=== PATIENT | female | born 2000 | race Asian ===

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

== ENCOUNTER 2018-05-12 15:18 | Emergency (ER) | payer MEDICAID ==
--- NOTE | 2018-05-12 17:40 | ED Physician Documentation ---
PD HPI NVD - Stated complaint Stated Complaint: F/V/D/HEADACHE - Chief complaint Chief Complaint: Abd Pain - History obtained from History obtained from: Patient - History of Present Illness Timing - onset: How many days ago (3) Timing - duration: Days (3) Timing - details: Abrupt onset, Still present (had onset of vomiting and diarrhea 3 days ago, worse the first 1-2 days and then diarrhea lessening. Developed headache yesterday, right sided and with light sensitivity. No history of migraines. No fever nor stiff neck.) Associated symptoms: Loss of appetite. No: Fever, Abdominal pain, Hematemesis, Hematochezia, Near syncope / syncope, Dysuria Contributing factors: No: Sick contact, Bad food, Travel, Alcohol use, Diabetes Improved by: No: Vomiting Worsened by: Eating Similar symptoms before: Has not had sx before Recently seen: Not recently seen Review of Systems Constitutional: reports: Myalgias. denies: Fever Eyes: reports: Photophobia. denies: Loss of vision Nose: denies: Rhinorrhea / runny nose, Congestion Throat: denies: Sore throat Respiratory: denies: Cough GI: reports: Nausea, Vomiting, Diarrhea. denies: Abdominal Pain Neurologic: reports: Headache. denies: Focal weakness, Numbness, Confused, Altered mental status, Head injury PD PAST MEDICAL HISTORY - Past Medical History Cardiovascular: None Respiratory: Pneumonia Neuro: None Endocrine/Autoimmune: None Psych: None Musculoskeletal: None - Past Surgical History Past Surgical History: No - Present Medications Home Medications: Ambulatory Orders Medication Instructions Recorded Confirmed Diphenoxylate/Atropine [Lomotil] 1 each PO QID PRN #15 tablet 05/12/18 Etonogestrel [Nexplanon] 05/12/18 Ondansetron Odt [Zofran] 4 mg TL Q6H PRN #15 tablet 05/12/18 - Allergies Allergies/Adverse Reactions: Allergies Allergy/AdvReac Type Severity Reaction Status Date / Time Penicillins Allergy Severe Hives Verified 12/18/17 22:03 - Social History Does the pt smoke?: No Smoking Status: Never smoker Does the pt drink ETOH?: No Does the pt have substance abuse?: No - Immunizations Immunizations are current?: Yes - POLST Patient has POLST: No PD ED PE NORMAL - Vitals Vital signs reviewed: Yes - General General: Alert and oriented X 3, No acute distress, Well developed/nourished - HEENT HEENT: Ears normal, Pharynx benign. No: Moist mucous membranes - Neck Neck: Supple, no meningeal sign, No bony TTP, No adenopathy - Cardiac Cardiac: RRR, No murmur - Respiratory Respiratory: Clear bilaterally - Abdomen Abdomen: Soft, Non tender - Female Female : Deferred - Rectal Rectal: Deferred - Back Back: No CVA TTP - Derm Derm: Normal color, Warm and dry - Extremities Extremities: No deformity, No tenderness to palpate, Normal ROM s pain, No edema , No calf tenderness / cord - Neuro Neuro: Alert and oriented X 3, No motor deficit, Normal speech Results - Vitals Vitals: Oxygen O2 Source Room air - Labs Labs: Laboratory Tests 05/12/18 05/12/18 05/12/18 17:15 17:15 17:30 WBC 9.2 RBC 4.80 Hgb 14.1 Hct 42.7 MCV 88.9 MCH 29.3 MCHC 33.0 RDW 13.5 Plt Count 403 MPV 7.9 Neut # (Auto) 6.1 Lymph # (Auto) 2.7 [place] # (Auto) 0.4 Eos # (Auto) 0.0 Baso # (Auto) 0.1 Absolute Nucleated RBC 0.00 Nucleated RBC % 0.1 Sodium Potassium Chloride Carbon Dioxide Anion Gap BUN Creatinine Estimated GFR (MDRD) Glucose Calcium Magnesium Total Bilirubin AST ALT Alkaline Phosphatase Total Protein Albumin Globulin Albumin/Globulin Ratio Lipase Urine Color YELLOW Urine Clarity CLEAR Urine pH 6.0 Ur Specific [place] 1.020 1.020 Urine Protein NEGATIVE Urine Glucose (UA) NEGATIVE Urine Ketones >=80 H Urine Occult Blood LARGE H Urine Nitrite NEGATIVE Urine Bilirubin NEGATIVE Urine Urobilinogen 0.2 (NORMAL) Ur Leukocyte Esterase NEGATIVE Urine RBC 6-10 H Urine WBC 0-3 Ur Squamous Epith Cells FEW Squamous Amorphous Sediment Moderate Urine Bacteria Few Urine Mucus Moderate Strands Ur Microscopic Review INDICATED Urine Culture Comments NOT INDICATED Urine HCG, Qual NEGATIVE 05/12/18 17:30 WBC RBC Hgb Hct MCV MCH MCHC RDW Plt Count MPV Neut # (Auto) Lymph # (Auto) [place] # (Auto) Eos # (Auto) Baso # (Auto) Absolute Nucleated RBC Nucleated RBC % Sodium 135 Potassium 3.5 Chloride 102 Carbon Dioxide 21 Anion Gap 12.0 BUN 8 Creatinine 0.7 Estimated GFR (MDRD) 107 Glucose 101 H Calcium 9.4 Magnesium 2.0 Total Bilirubin 1.3 H AST 20 ALT 19 Alkaline Phosphatase 54 Total Protein 8.8 H Albumin 4.4 Globulin 4.4 H Albumin/Globulin Ratio 1.0 Lipase 27 Urine Color Urine Clarity Urine pH Ur Specific [place] Urine Protein Urine Glucose (UA) Urine Ketones Urine Occult Blood Urine Nitrite Urine Bilirubin Urine Urobilinogen Ur Leukocyte Esterase Urine RBC Urine WBC Ur Squamous Epith Cells Amorphous Sediment Urine Bacteria Urine Mucus Ur Microscopic Review Urine Culture Comments Urine HCG, Qual PD MEDICAL DECISION MAKING - ED course Complexity details: re-evaluated patient (feeling much better with fluids and also meds tailored for migraine. ), considered differential (sounds migraine like with GE symptoms, perhaps vascular/migraine triggered by dehydration. No history of migraines. Does not seem meningitic. ), d/w patient - Sepsis Event Vital Signs: Oxygen O2 Source Room air Departure - Departure Disposition: 01 Home, Self Care Clinical Impression: Nausea vomiting and diarrhea, Dehydration Headache Qualifiers: Headache type: unspecified Headache chronicity pattern: acute headache Intractability: not intractable Qualified Code(s): R51 - Headache Condition: Stable Record reviewed to determine appropriate education?: Yes Instructions: ED Diet Vomiting Diarrhea Follow-Up: Marta Frias ARNP [Primary Care Provider] - Prescriptions: Diphenoxylate/Atropine [Lomotil] 1 each PO QID PRN #15 tablet PRN Reason: Diarrhea Ondansetron Odt [Zofran] 4 mg TL Q6H PRN #15 tablet PRN Reason: Nausea / Vomiting Comments: Small frequent fluids. [place] food such as rice and pastas and breads initially and progress diet as able over the next day. Presumably the vomiting and diarrhea are viral illness that should improve in the next day or 2. Tylenol or ibuprofen if needed for headache. Add the hydrocodone if needed. Ondansetron if needed for nausea. Lomotil for diarrhea. Recheck if not improved over the next day or 2. The headache you had sounds migraine-like and vascular headache such as that can be precipitated by dehydration and may be an isolated event. Follow-up with your primary care if you have repeated episodes frequently. Discharge Date/Time: 05/12/18 20:02
[2018-05-12] MEDS ORDERED: SODIUM CHLORIDE 0.9% 1,000 ML IV ONE ×2 (17:45)
[2018-05-12] MEDS ORDERED: KETOROLAC 60 MG/2 ML VIAL IVP STA (17:45)
[2018-05-12] MEDS ORDERED: diphenhydrAMINE INJ 50 MG/ML VIAL IVP STA (17:45)
[2018-05-12] MEDS ORDERED: PROCHLORPERAZINE 10 MG/2 ML VIAL IVP STA (17:45)
[2018-05-12] MEDS ORDERED: diphenhydrAMINE INJ 50 MG/ML VIAL ONE (18:07)
[2018-05-12] MEDS ORDERED: PROMETHAZINE 25 MG/1 ML VIAL ONE (18:07)
[2018-05-12] MEDS ORDERED: KETOROLAC 30 MG/ML VIAL ONE (18:07)
[2018-05-12 18:16] LABS: GLUCOSE, URINE (UA) NEGATIVE (NEGATIVE); KETONES,URINE (UA) >=80 mg/dL (NEGATIVE); LEUKOCYTE ESTERASE, URINE NEGATIVE (NEGATIVE); NITRITE,URINE NEGATIVE (NEGATIVE); OCCULT BLOOD,URINE LARGE (NEGATIVE); PROTEIN,URINE NEGATIVE (NEGATIVE); UROBILINOGEN,URINE 0.2 (NORMAL) E.U./dL (NORMAL)
[2018-05-12 18:30] LABS: BILIRUBIN,URINE NEGATIVE (NEGATIVE); CLARITY,URINE CLEAR (CLEAR); ICTOTEST,URINE NEGATIVE
[2018-05-12 18:31] LABS: ALBUMIN 4.4 g/dL (3.2-5.5); BILIRUBIN,TOTAL 1.3 mg/dL (0.2-1.0); CALCIUM 9.4 mg/dL (8.5-10.3); CREATININE 0.7 mg/dL (0.4-1.0); TOTAL PROTEIN 8.8 g/dL (6.7-8.2)
[2018-05-12 18:31] LABS: HCG UR QUAL NEGATIVE
[2018-05-12 18:34] LABS: BASOPHILS # (AUTO) 0.1 10^3/uL (0.0-0.1); BASOPHILS % (AUTO) 0.6 %; EOSINOPHILS % (AUTO) 0.1 %; HGB - HEMOGLOBIN 14.1 g/dL (12.0-16.0); LYMPHOCYTES # (AUTO) 2.7 10^3/uL (1.5-3.5); MEAN CORPUSCULAR HEMOGLOBIN 29.3 pg (27.0-31.0); MEAN CORPUSCULAR VOLUME 88.9 fL (81.0-99.0); MEAN PLATELET VOLUME 7.9 fL (7.9-10.8); MONOCYTES # (AUTO) 0.4 10^3/uL (0.0-1.0); MONOCYTES % (AUTO) 4.2 %; NEUTROPHILS # (AUTO) 6.1 10^3/uL (1.5-6.6); NEUTROPHILS % (AUTO) 66.1 %; PLT - PLATELET COUNT 403 10^3/uL (130-450); RED CELL DISTRIBUTION WIDTH 13.5 % (12.0-15.0); WHITE BLOOD COUNT 9.2 x10^3/uL (4.8-10.8)
[2018-05-12 18:42] LABS: BACTERIA,URINE Few /HPF (None Seen); SQUAMOUS EPITHELIAL CELL,UR FEW Squamous (<= Few)
[2018-05-12 18:43] LABS: AMORPHOUS SEDIMENT,UR Moderate /LPF; MUCUS,URINE Moderate Strands
[2018-05-12] MEDS ORDERED: ACETAMINOPHEN 325 MG TABLET PO STA (18:56)
[2018-05-12] MEDS ORDERED: ONDANSETRON ODT 4 MG Prepack 2 TL PRN (18:56)
[2018-05-12] MEDS ORDERED: HYDROcod/ACET 5/325 Prepack 4 PO STA (18:56)
[2018-05-12] MEDS ORDERED: DIPHENOX/ATROPINE 2.5/0.025 MG TABLET PO STA (18:56)
[2018-05-12 19:58] VITALS: BP 134/85
== END 2018-05-12 20:02 | disposition home or self-care (01) ==
LOC: ED 15:18
DX: R11.2 Nausea with vomiting, unspecified (principal); R19.7 Diarrhea, unspecified; E86.0 Dehydration; R51 Headache
CPT/HCPCS: 36415; 80053; 81001; 81025; 83690; 83735; 85025; 96361; 96374; 96375; 99284; A9270; J1200; 81003; 87086

== ENCOUNTER 2018-05-22 15:00 | Emergency (ER) | payer MEDICAID ==
--- NOTE | 2018-05-22 15:52 | ED Physician Documentation ---
PD HPI URI - Stated complaint Stated Complaint: FEVER/VILLALTA/THROAT PX - Chief complaint Chief Complaint: Fever - History obtained from History obtained from: Patient - History of Present Illness Timing - onset: How many days ago (4-5 days, of the tonsillitis symptoms. Has had the headache right frontal for weeks.) Timing duration: Days (5 days for the tonsillar symptoms.), Weeks (for headache) Timing details: Gradual onset, Waxing and waning Associated symptoms: Fever (few days ago, not currently), Sore throat. No: Dry cough, NVD Contributing factors: No: Sick contact, Travel Improves by: No: Rest, Medication (given Zpack by PCP, just finished it today, and no better.) Similar symptoms before: Has not had sx before Recently seen: Clinic (5 days ago Rx Zpack for exudative tonsils clinically.), Emergency Dept (a week ago for headache and malaise, with improvement while in ED but not resolution of the headache.) Review of Systems Constitutional: reports: Fever (few days ago, just the one day), Myalgias Ears: denies: Ear pain Nose: reports: Sinus pressure / pain (right frontal/denominational area). denies: Rhinorrhea / runny nose, Congestion Throat: reports: Sore throat, Swollen tonsils Respiratory: denies: Dyspnea, Cough GI: denies: Nausea, Vomiting, Diarrhea : denies: Dysuria, Frequency PD PAST MEDICAL HISTORY - Past Medical History Cardiovascular: None Respiratory: Pneumonia Neuro: None Endocrine/Autoimmune: None Psych: None Musculoskeletal: None - Past Surgical History Past Surgical History: No - Present Medications Home Medications: Ambulatory Orders Medication Instructions Recorded Confirmed Diphenoxylate/Atropine [Lomotil] 1 each PO QID PRN #15 tablet 05/12/18 Etonogestrel [Nexplanon] 05/12/18 Ondansetron Odt [Zofran] 4 mg TL Q6H PRN #15 tablet 05/12/18 Cephalexin [Keflex] 500 mg PO QID #24 capsule 05/22/18 Dexamethasone [Decadron] 4 mg PO DAILY #5 tablet 05/22/18 Ondansetron Odt [Zofran] 4 mg TL Q6H PRN #15 tablet 05/22/18 Tramadol HCl 50 mg PO Q6H PRN #20 tablet 05/22/18 - Allergies Allergies/Adverse Reactions: Allergies Allergy/AdvReac Type Severity Reaction Status Date / Time Penicillins Allergy Severe Hives Verified 12/18/17 22:03 - Social History Does the pt smoke?: No Smoking Status: Never smoker Does the pt drink ETOH?: No Does the pt have substance abuse?: No - Immunizations Immunizations are current?: Yes - POLST Patient has POLST: No PD ED PE NORMAL - Vitals Vital signs reviewed: Yes - General General: Alert and oriented X 3, No acute distress, Well developed/nourished - HEENT HEENT: Atraumatic, PERRL, Ears normal, Moist mucous membranes, Dentition benign , Other (tonsils, mostly right one, with swelling and exudate. No peritonsillar swelling seen. ) - Neck Neck: Supple, no meningeal sign, No bony TTP, No adenopathy - Cardiac Cardiac: RRR, No murmur - Respiratory Respiratory: Clear bilaterally - Abdomen Abdomen: Soft, Non tender - Derm Derm: Normal color, Warm and dry, No rash - Neuro Neuro: Alert and oriented X 3, scientologist 2-12 intact, No motor deficit, No sensory deficit, Normal speech Eye Opening: Spontaneous Motor: Obeys Commands Verbal: Oriented GCS Score: 15 Results - Vitals Vitals: Vital Signs - 24 hr 05/22/18 05/22/18 15:09 17:31 Temperature 36.7 C 37.2 C Heart Rate 118 H 93 Respiratory 18 16 Rate Blood Pressure 144/95 H 145/94 H O2 Saturation 96 99 Oxygen O2 Source Room air - Labs Labs: Laboratory Tests 05/22/18 05/22/18 15:48 16:00 Infectious [place] Assay NEGATIVE Group A Strep Rapid Negative - Rads (name of study) head CT Radiology: Prelim report reviewed (no acute process) PD MEDICAL DECISION MAKING - ED course Complexity details: reviewed results (head CT as patient was concerned with duration of right frontal headache, though seemed migrainous the prior visit. This is okay without structureal finding. ), considered differential (has had right frontal VILLALTA for few weeks and it improved with migraine directed medications on prior ED visit. She is concerned about abscess, tumor, cancer, etc. CT done and was okay. ), d/w patient - Sepsis Event Vital Signs: Vital Signs - 24 hr 05/22/18 05/22/18 15:09 17:31 Temperature 36.7 C 37.2 C Heart Rate 118 H 93 Respiratory 18 16 Rate Blood Pressure 144/95 H 145/94 H O2 Saturation 96 99 Oxygen O2 Source Room air Departure - Departure Disposition: 01 Home, Self Care Clinical Impression: Right-sided headache Acute tonsillitis Qualifiers: Pharyngitis/tonsillitis etiology: unspecified etiology Qualified Code(s): J03.90 - Acute tonsillitis, unspecified Condition: Stable Record reviewed to determine appropriate education?: Yes Instructions: ED Strep Pharyngitis Poss Prescriptions: Cephalexin [Keflex] 500 mg PO QID #24 capsule Dexamethasone [Decadron] 4 mg PO DAILY #5 tablet Ondansetron Odt [Zofran] 4 mg TL Q6H PRN #15 tablet PRN Reason: Nausea / Vomiting Tramadol HCl 50 mg PO Q6H PRN #20 tablet PRN Reason: Pain Comments: Your head CT appears normal without any signs of abscesses or tumors. Presume still lots of functional headache than like migraine or sinus headache. The tonsil does appear infected and looks compatible with bacterial infection. Will treat it that way pending the culture result. Cephalexin antibiotic as directed. Decadron daily for swelling to reduce the pain. Tylenol or ibuprofen if needed for pains. Ondansetron for nausea as needed. Add tramadol if needed for pain. Drink lots of fluids. Recheck if not improving over the next several days. The culture results will be available in 2-3 days and will call you if we need to amend the antibiotic treatment. Discharge Date/Time: 05/22/18 17:32
[2018-05-22] MEDS ORDERED: cephALEXin 250 MG CAPSULE PO STA (16:10)
[2018-05-22] MEDS ORDERED: DEXAMETHASONE 10 MG/ML VIAL PO STA (16:10)
[2018-05-22] MEDS ORDERED: ONDANSETRON ODT 4 MG TABLET TL STA (16:10)
[2018-05-22] MEDS ORDERED: traMADol 50 MG TABLET PO STA (16:10)
--- NOTE | 2018-05-22 16:51 | CT Report ---
Procedure Date: 05/22/2018 Accession Number: [id number] / [id number] Procedure: CT - Head W/O CPT Code: FULL RESULT: EXAM: CT HEAD EXAM DATE: 05/22/2018 04:27 PM. CLINICAL HISTORY: Right frontal headache for 2 weeks. COMPARISON: None. TECHNIQUE: Multiaxial CT images were obtained from the foramen magnum to the vertex. Reformats: Coronal. IV contrast: None. In accordance with CT protocol optimization, one or more of the following dose reduction techniques were utilized for this exam: automated exposure control, adjustment of mA and/or KV based on patient size, or use of iterative reconstructive technique. FINDINGS: Parenchyma: No intraparenchymal hemorrhage. No evidence of mass, midline shift, or CT findings of infarction. Whitehead-white differentiation is distinct. Extraaxial Spaces: Normal for age. No subdural or epidural collections identified. Ventricles: Normal in size and position. Sinuses and Orbits: Imaged paranasal sinuses, orbits, and mastoids show no significant abnormality. Bones: No evidence of fracture or calvarial defect. Other: None. IMPRESSION: Normal head CT. RADIA
[2018-05-22 17:32] VITALS: BP 145/94
== END 2018-05-22 17:32 | disposition home or self-care (01) ==
LOC: ED 15:00
DX: R51 Headache (principal); J03.90 Acute tonsillitis, unspecified
CPT/HCPCS: 36415; 70450; 86308; 87070; 87430; 99283; 99284; A9270; Q0162

== ENCOUNTER 2018-06-14 12:38 | Emergency (ER) | payer MEDICAID ==
[2018-06-14 13:52] LABS: GLUCOSE, URINE (UA) NEGATIVE (NEGATIVE); KETONES,URINE (UA) 15 mg/dL (NEGATIVE); LEUKOCYTE ESTERASE, URINE TRACE (NEGATIVE); NITRITE,URINE NEGATIVE (NEGATIVE); OCCULT BLOOD,URINE NEGATIVE (NEGATIVE); PROTEIN,URINE NEGATIVE (NEGATIVE); UROBILINOGEN,URINE 0.2 (NORMAL) E.U./dL (NORMAL)
[2018-06-14 13:58] LABS: CLARITY,URINE HAZY (CLEAR); HCG UR QUAL NEGATIVE
[2018-06-14 14:35] LABS: BACTERIA,URINE Rare /HPF (None Seen); RBC,URINE 0-5 /HPF (0-5); SQUAMOUS EPITHELIAL CELL,UR FEW Squamous (<= Few)
[2018-06-14 14:36] LABS: BILIRUBIN,URINE NEGATIVE (NEGATIVE); ICTOTEST,URINE NEGATIVE; MUCUS,URINE Marked Strands
--- NOTE | 2018-06-14 15:09 | ED Physician Documentation ---
PD HPI HEADACHE - Stated complaint Stated Complaint: NAUSEA/VOMITING/HEADACHE - Chief complaint Chief Complaint: Abd Pain - History obtained from History obtained from: Patient - History of Present Illness Timing - onset: How many days ago (2-3) Timing - duration: Days (2-3) Timing - details: Gradual onset, Still present, Waxing and waning Worst headache ever?: No: Worst headache ever? Location: Front, Right Quality: Throbbing, Aching Associated symptoms: Nausea, Vomiting. No: Fever, Stiff neck, Weakness, Numbness, Eye pain, Vision changes Improved by: No: Rest, Meds (tylenol and ibuprofen) Contributing factors: No: Recent illness, Trauma Similar symptoms before: No diagnosis (presumed infection related and treated for tonsil infection a month ago. Normal labs and head CT.) Recently seen: Emergency Dept (4 weeks ago for similar but had throat pain as well. Rx for tonsillitis. She says she got muscle achesa dn lightheaded from the decadron or Cephalexin. Improved with symptoms and was okay for 3 weeks. Now the right headache again without throat symptoms nor adenopathy.) Review of Systems Constitutional: reports: Myalgias. denies: Fever, Chills Eyes: denies: Loss of vision, Decreased vision, Photophobia Ears: reports: Ear pain. denies: Loss of hearing, Drainage/discharge Nose: denies: Rhinorrhea / runny nose, Congestion, Sinus pressure / pain Throat: denies: Sore throat Respiratory: denies: Dyspnea, Cough GI: reports: Nausea, Vomiting. denies: Abdominal Pain, Constipation Skin: denies: Rash, Lesions Neurologic: denies: Focal weakness, Numbness PD PAST MEDICAL HISTORY - Past Medical History Cardiovascular: None Respiratory: Pneumonia Neuro: None Endocrine/Autoimmune: None Psych: None Musculoskeletal: None - Past Surgical History Past Surgical History: No - Present Medications Home Medications: Ambulatory Orders Medication Instructions Recorded Confirmed Etonogestrel [Nexplanon] 05/12/18 Ondansetron Odt [Zofran] 4 mg TL Q6H PRN #15 tablet 05/12/18 Ondansetron Odt [Zofran] 4 mg TL Q6H PRN #15 tablet 05/22/18 Butalb/Acetaminophen/Caffeine 1 each PO Q6H PRN #20 capsule 06/14/18 [Fioricet 50-300-40 mg Capsule] HYDROcod/ACETAM 5/325 [[place] 5/325] 1 tab PO Q6H PRN #15 tablet 06/14/18 Ibuprofen [Motrin] 600 mg PO TID #30 tab 06/14/18 Ondansetron Odt [Zofran] 4 mg TL Q6H PRN #15 tablet 06/14/18 - Allergies Allergies/Adverse Reactions: Allergies Allergy/AdvReac Type Severity Reaction Status Date / Time Penicillins Allergy Severe Hives Verified 06/14/18 12:46 cephalexin [From Keflex] AdvReac Dizziness Verified 06/14/18 12:47 - Social History Does the pt smoke?: No Smoking Status: Never smoker Does the pt drink ETOH?: No Does the pt have substance abuse?: No - Family History Family history: denies: CVA, Cerebral aneurysm - Immunizations Immunizations are current?: Yes - POLST Patient has POLST: No PD ED PE NORMAL - Vitals Vital signs reviewed: Yes - General General: Alert and oriented X 3, Well developed/nourished - HEENT HEENT: Atraumatic, PERRL, EOMI, Ears normal, Moist mucous membranes, Pharynx benign, Dentition benign - Neck Neck: Supple, no meningeal sign, No adenopathy - Cardiac Cardiac: RRR, No murmur - Respiratory Respiratory: Clear bilaterally - Abdomen Abdomen: Soft, Non tender - Back Back: No CVA TTP - Derm Derm: Normal color, Warm and dry - Extremities Extremities: No tenderness to palpate, Normal ROM s pain, No edema, No calf tenderness / cord - Neuro Neuro: Alert and oriented X 3, custom bookbinder 2-12 intact, No motor deficit, No sensory deficit, Normal speech Eye Opening: Spontaneous Motor: Obeys Commands Verbal: Oriented GCS Score: 15 Results - Vitals Vitals: Vital Signs - 24 hr 06/14/18 06/14/18 12:45 16:58 Temperature 36.8 C Heart Rate 94 79 Respiratory 20 16 Rate Blood Pressure 147/94 H 129/77 O2 Saturation 97 100 Oxygen O2 Source Room air - Labs Labs: Laboratory Tests 06/14/18 06/14/18 06/14/18 12:55 15:35 15:35 WBC 8.8 RBC 4.53 Hgb 13.3 Hct 39.7 MCV 87.6 MCH 29.3 MCHC 33.5 RDW 14.2 Plt Count 403 MPV 7.0 L Neut # (Auto) 6.3 Lymph # (Auto) 2.1 [place] # (Auto) 0.4 Eos # (Auto) 0.0 Baso # (Auto) 0.0 Absolute Nucleated RBC 0.00 Nucleated RBC % 0.0 ESR 19 Sodium Potassium Chloride Carbon Dioxide Anion Gap BUN Creatinine Estimated GFR (MDRD) Glucose Calcium Total Bilirubin AST ALT Alkaline Phosphatase Total Protein Albumin Globulin Albumin/Globulin Ratio Lipase Urine Color YELLOW Urine Clarity HAZY Urine pH 6.0 Ur Specific [place] 1.025 Urine Protein NEGATIVE Urine Glucose (UA) NEGATIVE Urine Ketones 15 H Urine Occult Blood NEGATIVE Urine Nitrite NEGATIVE Urine Bilirubin NEGATIVE Urine Urobilinogen 0.2 (NORMAL) Ur Leukocyte Esterase TRACE H Urine RBC 0-5 Urine WBC 4-5 Ur Squamous Epith Cells FEW Squamous Urine Bacteria Rare Urine Mucus Marked Strands Ur Microscopic Review INDICATED Urine Culture Comments INDICATED Urine HCG, Qual NEGATIVE 06/14/18 15:35 WBC RBC Hgb Hct MCV MCH MCHC RDW Plt Count MPV Neut # (Auto) Lymph # (Auto) [place] # (Auto) Eos # (Auto) Baso # (Auto) Absolute Nucleated RBC Nucleated RBC % ESR Sodium 135 Potassium 4.1 Chloride 103 Carbon Dioxide 24 Anion Gap 8.0 BUN 10 Creatinine 0.7 Estimated GFR (MDRD) 107 Glucose 105 H Calcium 9.3 Total Bilirubin 2.0 H AST 20 ALT 23 Alkaline Phosphatase 48 Total Protein 8.4 H Albumin 4.3 Globulin 4.2 Albumin/Globulin Ratio 1.0 Lipase 32 Urine Color Urine Clarity Urine pH Ur Specific [place] Urine Protein Urine Glucose (UA) Urine Ketones Urine Occult Blood Urine Nitrite Urine Bilirubin Urine Urobilinogen Ur Leukocyte Esterase Urine RBC Urine WBC Ur Squamous Epith Cells Urine Bacteria Urine Mucus Ur Microscopic Review Urine Culture Comments Urine HCG, Qual PD MEDICAL DECISION MAKING - ED course Complexity details: reviewed old records (similar symptoms with CT head and labs done the recent visit (within past couple weeks)), reviewed results, re- evaluated patient (feeling much better with IV fluid/meds that are targeted toward migraine types. ), considered differential, d/w patient - Sepsis Event Vital Signs: Vital Signs - 24 hr 06/14/18 06/14/18 12:45 16:58 Temperature 36.8 C Heart Rate 94 79 Respiratory 20 16 Rate Blood Pressure 147/94 H 129/77 O2 Saturation 97 100 Oxygen O2 Source Room air Departure - Departure Disposition: 01 Home, Self Care Clinical Impression: Headache Qualifiers: Headache type: unspecified Headache chronicity pattern: acute headache Intractability: not intractable Qualified Code(s): R51 - Headache Condition: Stable Record reviewed to determine appropriate education?: Yes Instructions: ED Cephalgia Unspecified Follow-Up: [facility] [Provider Group] [facility] [Provider Group] Prescriptions: Butalb/Acetaminophen/Caffeine [Fioricet 50-300-40 mg Capsule] 1 each PO Q6H PRN #20 capsule PRN Reason: Headache HYDROcod/ACETAM 5/325 [[place] 5/325] 1 tab PO Q6H PRN #15 tablet PRN Reason: Pain Ibuprofen [Motrin] 600 mg PO TID #30 tab Ondansetron Odt [Zofran] 4 mg TL Q6H PRN #15 tablet PRN Reason: Nausea / Vomiting Comments: This may be a migraine type headache as it did improve with some of the medicines targeted towards that. For subsequent headache, he can use ibuprofen 3 times a day. Ondansetron if needed for nausea. If you get similar headache subsequently, combine that with Fioricet which is a migraine particular medication. If still having headache unresolved by those, add hydrocodone. Follow-up with a primary care when back from your trip, call for an appointment. Discharge Date/Time: 06/14/18 17:35
[2018-06-14] MEDS ORDERED: KETOROLAC 60 MG/2 ML VIAL IVP STA (15:20)
[2018-06-14] MEDS ORDERED: METOCLOPRAMIDE 10 MG/2 ML VIAL IVP STA (15:20)
[2018-06-14] MEDS ORDERED: diphenhydrAMINE INJ 50 MG/ML VIAL IVP STA (15:20)
[2018-06-14] MEDS ORDERED: SODIUM CHLORIDE 0.9% 1,000 ML IV ONE ×2 (15:20→15:21)
[2018-06-14 15:44] LABS: BASOPHILS % (AUTO) 0.4 %; EOSINOPHILS % (AUTO) 0.1 %; HGB - HEMOGLOBIN 13.3 g/dL (12.0-16.0); LYMPHOCYTES # (AUTO) 2.1 10^3/uL (1.5-3.5); LYMPHOCYTES % (AUTO) 23.5 %; MEAN CORPUSCULAR HEMOGLOBIN 29.3 pg (27.0-31.0); MEAN CORPUSCULAR HGB CONC 33.5 g/dL (32.0-36.0); MEAN CORPUSCULAR VOLUME 87.6 fL (81.0-99.0); MONOCYTES # (AUTO) 0.4 10^3/uL (0.0-1.0); MONOCYTES % (AUTO) 4.4 %; NEUTROPHILS # (AUTO) 6.3 10^3/uL (1.5-6.6); NEUTROPHILS % (AUTO) 71.6 %; PLT - PLATELET COUNT 403 10^3/uL (130-450); RED BLOOD COUNT 4.53 10^6/uL (4.20-5.40); RED CELL DISTRIBUTION WIDTH 14.2 % (12.0-15.0); WHITE BLOOD COUNT 8.8 x10^3/uL (4.8-10.8)
[2018-06-14 15:54] LABS: ALBUMIN 4.3 g/dL (3.2-5.5); CALCIUM 9.3 mg/dL (8.5-10.3); CREATININE 0.7 mg/dL (0.4-1.0); TOTAL PROTEIN 8.4 g/dL (6.7-8.2)
[2018-06-14] MEDS ORDERED: MORPHINE 10 MG/ML VIAL IVP STA (16:27)
[2018-06-14 16:59] VITALS: BP 129/77
== END 2018-06-14 17:35 | disposition home or self-care (01) ==
LOC: ED 12:38
DX: R51 Headache (principal)
CPT/HCPCS: 36415; 80053; 81001; 81025; 83690; 85025; 85651; 87086; 96374; 96375; 99283; 99284; J1200; J2765; 81003

== ENCOUNTER 2018-06-16 16:24 | Emergency (ER) | payer MEDICAID ==
[2018-06-16] MEDS ORDERED: IOPAMIDOL-300 100 ML VIAL IVP ONE ×2 (16:25→18:59)
[2018-06-16] MEDS ORDERED: diphenhydrAMINE INJ 50 MG/ML VIAL IVP STA (16:37)
[2018-06-16] MEDS ORDERED: SODIUM CHLORIDE 0.9% 1,000 ML IV ONE (16:37)
[2018-06-16] MEDS ORDERED: METOCLOPRAMIDE 10 MG/2 ML VIAL IVP STA (16:37)
--- NOTE | 2018-06-16 16:39 | ED Physician Documentation ---
PD HPI FOCAL NEURO - Stated complaint Stated Complaint: NUMBNESS RT SIDE - Chief complaint Chief Complaint: Neuro - History obtained from History obtained from: Patient - History of Present Illness Timing - onset: Other (This is a 18-year-old woman whose had mild headaches in the past but has been dealing with more severe headaches over the last month or so. She relates it to having a Nexplanon. She has been seen in multiple ERs and had a CAT scan that was negative and negative blood work. She has a persistent right-sided headache that she feels like on the surface because when she looks to the left she feels a pulling behind the right eye. Since yesterday she has had right upper extremity numbness and today also the right lower extremity is involved. She feels intermittently somewhat weak with it. She denies any nausea or light sensitivity.) Review of Systems Constitutional: denies: Fever, Chills Nose: denies: Rhinorrhea / runny nose, Congestion Respiratory: denies: Dyspnea, Cough GI: denies: Abdominal Pain, Nausea, Vomiting : denies: Now EGA PD PAST MEDICAL HISTORY - Past Medical History Cardiovascular: None Respiratory: Pneumonia Neuro: None Endocrine/Autoimmune: None Psych: None Musculoskeletal: None Derm: None - Past Surgical History Past Surgical History: No - Present Medications Home Medications: Ambulatory Orders Medication Instructions Recorded Confirmed Etonogestrel [Nexplanon] 05/12/18 Ondansetron Odt [Zofran] 4 mg TL Q6H PRN #15 tablet 05/12/18 Ondansetron Odt [Zofran] 4 mg TL Q6H PRN #15 tablet 05/22/18 Butalb/Acetaminophen/Caffeine 1 each PO Q6H PRN #20 capsule 06/14/18 [Fioricet 50-300-40 mg Capsule] HYDROcod/ACETAM 5/325 [[place] 5/325] 1 tab PO Q6H PRN #15 tablet 06/14/18 Ibuprofen [Motrin] 600 mg PO TID #30 tab 06/14/18 Ondansetron Odt [Zofran] 4 mg TL Q6H PRN #15 tablet 06/14/18 SUMAtriptan [Imitrex] 25 mg PO BID PRN #10 tablet 06/16/18 - Allergies Allergies/Adverse Reactions: Allergies Allergy/AdvReac Type Severity Reaction Status Date / Time Penicillins Allergy Severe Hives Verified 06/16/18 16:28 cephalexin [From Keflex] AdvReac Dizziness Verified 06/16/18 16:28 - Social History Does the pt smoke?: No Smoking Status: Never smoker Does the pt drink ETOH?: No Does the pt have substance abuse?: No - Immunizations Immunizations are current?: Yes - POLST Patient has POLST: No PD ED PE NORMAL - Vitals Vital signs reviewed: Yes - General General: Alert and oriented X 3, No acute distress - HEENT HEENT: PERRL, EOMI, Ears normal, Moist mucous membranes, Pharynx benign - Neck Neck: Supple, no meningeal sign, No bony TTP - Cardiac Cardiac: RRR, No murmur - Respiratory Respiratory: No respiratory distress, Clear bilaterally - Abdomen Abdomen: Normal bowel sounds, Soft, Non tender - Back Back: No CVA TTP, No spinal TTP - Derm Derm: Normal color, Warm and dry - Extremities Extremities: No edema, No calf tenderness / cord - Neuro Neuro: Alert and oriented X 3, Normal speech Eye Opening: Spontaneous Motor: Obeys Commands Verbal: Oriented GCS Score: 15 NIHSS - Time Time: 16:39 - Level of Consciousness Level of consciousness: (0) Alert, Keenly responsive LOC Questions: (0) Answers both Q's correct LOC Commands: (0) Performs both correctly - Gaze Best Gaze: (0) Normal - Visual Visual: (0) No loss - Facial Palsy Facial Palsy: (0) Normal, symmetrical movement - Motor Arms (both separate) Motor Arm (right): (0) No drift Motor Arm (left): (0) No drift - Motor Legs (both separate) Motor Leg (right): (0) No drift Motor Leg (left): (0) No drift - Limb Ataxia Limb Ataxia: (0) Absent - Sensory Sensory: (1) [id number] loss (She has mild loss in the right face and the right deltoid, it does not involve the right leg or the forearm/hand on the right.) - Best Language Best Language: (0) No aphasia - Dysarthria Dysarthria: (0) Normal - Extinction and Inattention (formally neg Extinction and inattention: (0) No abnormality - Total Score/Results Total Score/Result: 1 Results - Vitals Vitals: Vital Signs - 24 hr 06/16/18 06/16/18 16:26 18:28 Temperature 37.4 C Heart Rate 109 H 85 Respiratory 18 18 Rate Blood Pressure 165/92 H 124/69 O2 Saturation 99 99 Oxygen O2 Source Room air - Labs Labs: Laboratory Tests 06/16/18 06/16/18 16:49 16:49 WBC 9.4 RBC 4.48 Hgb 13.4 Hct 39.1 MCV 87.3 MCH 29.9 MCHC 34.2 RDW 14.0 Plt Count 383 MPV 7.0 L Neut # (Auto) 6.1 Lymph # (Auto) 2.7 [place] # (Auto) 0.6 Eos # (Auto) 0.0 Baso # (Auto) 0.1 Absolute Nucleated RBC 0.00 Nucleated RBC % 0.0 Sodium 138 Potassium 3.5 Chloride 104 Carbon Dioxide 23 Anion Gap 11.0 BUN 7 Creatinine 0.7 Estimated GFR (MDRD) 107 Glucose 102 H Calcium 9.6 Total Bilirubin 1.7 H AST 16 ALT 19 Alkaline Phosphatase 50 Total Protein 8.1 Albumin 4.8 Globulin 3.3 Albumin/Globulin Ratio 1.5 Lipase 31 - Rads (name of study) CTA Head Radiology: EMP read contemporaneously (1. There is no acute intracranial abnormality. 2. Normal postcontrast CT scan of the head. 3. 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 The differential diagnosis would include infundibulum versus small saccular aneurysm. 4. There is no hemodynamically significant stenosis within the head.) PD MEDICAL DECISION MAKING - ED course ED course: 18-year-old with worsening headaches over the last month, potentially related to new Nexplanon. Now with some neurologic symptoms. She had complete resolution after the administration of Reglan suggesting a migrainous cause and there was no significant abnormal head. 1.5 mm abnormality was discussed with her but I think this is well too small to be symptomatic and MRA was advised in 6 months. - Sepsis Event Vital Signs: Vital Signs - 24 hr 06/16/18 06/16/18 16:26 18:28 Temperature 37.4 C Heart Rate 109 H 85 Respiratory 18 18 Rate Blood Pressure 165/92 H 124/69 O2 Saturation 99 99 Oxygen O2 Source Room air Departure - Departure Disposition: 01 Home, Self Care Clinical Impression: Migraine Qualifiers: Migraine type: with aura Status migrainosus presence: with status migrainosus Intractability: not intractable Qualified Code(s): G43.101 - Migraine with aura , not intractable, with status migrainosus Condition: Good Record reviewed to determine appropriate education?: Yes Instructions: ED Headache Migraine, Imitrex Prescriptions: SUMAtriptan [Imitrex] 25 mg PO BID PRN #10 tablet PRN Reason: Headache Comments: Follow-up with your doctor on return home, you will need an MRA of your head in 6 months. Return for new or worsening symptoms.
[2018-06-16] MEDS ORDERED: IOPAMIDOL-300 100 ML VIAL ONE (16:53)
[2018-06-16 16:55] LABS: BASOPHILS # (AUTO) 0.1 10^3/uL (0.0-0.1); BASOPHILS % (AUTO) 0.5 %; EOSINOPHILS % (AUTO) 0.4 %; HGB - HEMOGLOBIN 13.4 g/dL (12.0-16.0); LYMPHOCYTES # (AUTO) 2.7 10^3/uL (1.5-3.5); LYMPHOCYTES % (AUTO) 28.2 %; MEAN CORPUSCULAR HEMOGLOBIN 29.9 pg (27.0-31.0); MEAN CORPUSCULAR HGB CONC 34.2 g/dL (32.0-36.0); MEAN CORPUSCULAR VOLUME 87.3 fL (81.0-99.0); MONOCYTES # (AUTO) 0.6 10^3/uL (0.0-1.0); MONOCYTES % (AUTO) 6.2 %; NEUTROPHILS # (AUTO) 6.1 10^3/uL (1.5-6.6); NEUTROPHILS % (AUTO) 64.7 %; PLT - PLATELET COUNT 383 10^3/uL (130-450); RED BLOOD COUNT 4.48 10^6/uL (4.20-5.40); WHITE BLOOD COUNT 9.4 x10^3/uL (4.8-10.8)
[2018-06-16 17:06] LABS: ALBUMIN 4.8 g/dL (3.2-5.5); ALBUMIN/GLOBULIN RATIO 1.5 (1.0-2.2); BILIRUBIN,TOTAL 1.7 mg/dL (0.2-1.0); CALCIUM 9.6 mg/dL (8.5-10.3); CREATININE 0.7 mg/dL (0.4-1.0); TOTAL PROTEIN 8.1 g/dL (6.7-8.2)
[2018-06-16 18:28] VITALS: BP 124/69
--- NOTE | 2018-06-16 18:32 | CT Report ---
Procedure Date: 06/16/2018 Accession Number: [id number] / [id number] Procedure: CT - Head Angio CPT Code: FULL RESULT: EXAM: CT ANGIOGRAM HEAD. CT SCAN OF THE HEAD WITHOUT AND WITH CONTRAST. EXAM DATE: 06/16/2018 06:02 PM CLINICAL HISTORY: Headache with R side numb. Migraine. COMPARISON: CT scan of the head without contrast 05/22/2018. TECHNIQUE: - CT Scan Head: Using a multidetector scanner, axial images were acquired from the foramen magnum to the skull vertex prior to and following contrast administration. - CT Angiogram: Using a multidetector scanner, high-resolution axial images were acquired from the skull base through vertex following rapid infusion of intravenous contrast. Reformats: Multiplanar MIP reformats were reconstructed. Nascet criteria used for stenosis measurement. IV Contrast: ISOVUE 300 80mL. In accordance with CT protocol optimization, one or more of the following dose reduction techniques were utilized for this exam: automated exposure control, adjustment of mA and/or KV based on patient size, or use of iterative reconstructive technique. FINDINGS: NON-CONTRAST HEAD: The imaged portions of the paranasal sinuses are normally aerated. The bilateral mastoid air cells are normally aerated. There is no acute fracture of the calvaria. There is no acute collection of blood or blood products, or mass. There is no midline shift. Cerebral volume and ventricular size are normal. The knox-white differentiation remains distinct. CT scan of the head with contrast: There is normal enhancement within the brain parenchyma. There is normal enhancement within the deep venous sinuses. CTA of the head: The right vertebral artery intradural segment is smooth and nonstenotic. The left vertebral artery intradural segment is smooth and nonstenotic. The left posterior-inferior cerebellar artery is without flow-limiting stenosis. A well-defined right posterior inferior cerebellar artery is not identified. There is a suggestion of a right AICA PICA anatomical variant. However, there is superimposed motion. This limits the overall sensitivity. The basilar artery is without flow-limiting stenosis. The left anterior inferior cerebellar artery is smooth and nonstenotic. The right superior cerebellar artery is without flow-limiting stenosis. The left superior cerebellar artery is without flow-limiting stenosis. The left P1 and P2 segments of the left posterior cerebral artery are without flow-limiting stenosis. The right P1 and P2 segments of the right posterior cerebral artery are without flow-limiting stenosis. 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 The differential diagnosis would include infundibulum versus small saccular aneurysm. The left posterior communicating artery is without flow-limiting stenosis. The right intracranial internal carotid artery is smooth and nonstenotic. The left intracranial internal carotid artery is smooth and nonstenotic. The right M1 and proximal M2 segments of the right middle cerebral artery are smooth and nonstenotic. The left M1 and proximal M2 segments of the left middle cerebral artery are smooth and nonstenotic. The right A1 segment is smooth and nonstenotic. The left A1 segment is smooth and nonstenotic. There is a small anterior communicating artery. The right A2 segment of the right anterior cerebral artery is smooth and nonstenotic. The left A2 segment of the left anterior cerebral artery is smooth and nonstenotic. There is normal enhancement within the deep venous sinuses. Impression: 1. There is no acute intracranial abnormality. 2. Normal postcontrast CT scan of the head. 3. 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 The differential diagnosis would include infundibulum versus small saccular aneurysm. 4. There is no hemodynamically significant stenosis within the head.
== END 2018-06-16 19:00 | disposition home or self-care (01) ==
LOC: ED 16:24
DX: G43.101 Migraine with aura, not intractable, with status migrainosus (principal); R93.8 Abnormal findings on diagnostic imaging of other specified body structures
CPT/HCPCS: 36415; 70496; 80053; 83690; 85025; 96361; 96374; 96375; 99283; 99284; J1200; J2765; Q9967

== ENCOUNTER 2018-06-18 09:26 | Emergency (ER) | payer MEDICAID ==
[2018-06-18] MEDS ORDERED: ONDANSETRON ODT 4 MG TABLET TL STA (10:56)
[2018-06-18 11:54] VITALS: BP 143/87
[2018-06-18] MEDS ORDERED: LIDOCAINE VISCOUS 2% 15 ML UDC MM STA (12:17)
[2018-06-18] MEDS ORDERED: MAG HYDROX/AL HYDROX/SIMETH 30 ML UDC PO STA (12:17)
--- NOTE | 2018-06-18 12:57 | ED Physician Documentation ---
PD HPI CHEST PAIN - Stated complaint Stated Complaint: NECK SWELLING/PX/DIZZINESS - Chief complaint Chief Complaint: General - History obtained from History obtained from: Patient - History of Present Illness Timing - onset: Today Timing - onset during: Rest Timing - details: Still present Quality: Dull Location: Substernal, Left neck Recently seen: Emergency Dept (2 days ago.) - Additional information Additional information: The patient is a 18-year-old female who awoke this morning with epigastric discomfort, nausea, a sense of dizziness, and discomfort on the left side of her throat. She denies fever, headache, vomiting, cough, shortness of breath, numbness or weakness. She was seen in the emergency department here 2 days ago with a right frontal headache and tingling/numbness in her right upper extremity. 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 Recommendation was for follow-up at 6 months with MRA, but no urgent imaging or intervention was clinically indicated. The patient is planning an airplane flight tomorrow, and she is quite anxious having been told about this finding on CT scan. Review of Systems Constitutional: denies: Fever Eyes: denies: Decreased vision Ears: denies: Tinnitus/ringing Nose: denies: Congestion Throat: reports: Sore throat (Discomfort on the left side of her throat.) Cardiac: reports: Chest pain / pressure (Lower substernal.). denies: Palpitations Respiratory: denies: Dyspnea, Cough GI: reports: Nausea. denies: Abdominal Pain, Vomiting : denies: Dysuria Skin: denies: Rash Musculoskeletal: denies: Back pain, Extremity pain, Extremity swelling Neurologic: denies: Focal weakness, Numbness, Headache PD PAST MEDICAL HISTORY - Past Medical History Cardiovascular: None Respiratory: Pneumonia Neuro: None Endocrine/Autoimmune: None Psych: None Musculoskeletal: None Derm: None - Past Surgical History Past Surgical History: No - Present Medications Home Medications: Ambulatory Orders Medication Instructions Recorded Confirmed Etonogestrel [Nexplanon] 05/12/18 Ondansetron Odt [Zofran] 4 mg TL Q6H PRN #15 tablet 05/12/18 Ondansetron Odt [Zofran] 4 mg TL Q6H PRN #15 tablet 05/22/18 Butalb/Acetaminophen/Caffeine 1 each PO Q6H PRN #20 capsule 06/14/18 [Fioricet 50-300-40 mg Capsule] HYDROcod/ACETAM 5/325 [[place]han 5/325] 1 tab PO Q6H PRN #15 tablet 06/14/18 Ibuprofen [Motrin] 600 mg PO TID #30 tab 06/14/18 Ondansetron Odt [Zofran] 4 mg TL Q6H PRN #15 tablet 06/14/18 SUMAtriptan [Imitrex] 25 mg PO BID PRN #10 tablet 06/16/18 Alprazolam [Xanax] 0.5 mg PO BID PRN #6 tablet 06/18/18 - Allergies Allergies/Adverse Reactions: Allergies Allergy/AdvReac Type Severity Reaction Status Date / Time Penicillins Allergy Severe Hives Verified 06/16/18 16:28 cephalexin [From Keflex] AdvReac Dizziness Verified 06/16/18 16:28 - Social History Does the pt smoke?: No Smoking Status: Never smoker Does the pt drink ETOH?: No Does the pt have substance abuse?: No - Immunizations Immunizations are current?: Yes - POLST Patient has POLST: No PD ED PE NORMAL - Vitals Vital signs reviewed: Yes (Initially hypertensive.) - General General: Alert and oriented X 3, Well developed/nourished, Other (Appears anxious.) - HEENT HEENT: Atraumatic, EOMI, Moist mucous membranes, Pharynx benign - Neck Neck: Supple, no meningeal sign, No adenopathy, No JVD - Cardiac Cardiac: RRR, No murmur - Respiratory Respiratory: No respiratory distress, Clear bilaterally - Abdomen Abdomen: Normal bowel sounds, Soft, No organomegaly, Other (Mild midepigastric tenderness to palpation, without rebound or guarding.) - Back Back: No CVA TTP - Derm Derm: No rash - Extremities Extremities: No edema, No calf tenderness / cord - Neuro Neuro: Alert and oriented X 3, No motor deficit, No sensory deficit Results - Vitals Vitals: Vital Signs - 24 hr 06/18/18 06/18/18 09:35 11:54 Temperature 36.5 C 36.9 C Heart Rate 102 H 102 H Respiratory 22 20 Rate Blood Pressure 157/111 H 143/87 H O2 Saturation 99 99 Oxygen O2 Source Room air PD MEDICAL DECISION MAKING - ED course Complexity details: reviewed old records, reviewed results, re-evaluated patient , considered differential, d/w patient, d/w family ED course: The patient's presentation is most consistent with gastroesophageal reflux, as part of is as reaction. Her presentation does not suggest cardiac etiology or pulmonary etiology. Treatment in the emergency department included administration of GI cocktail, which relieved her symptoms. I discussed with her and her mother the likely diagnosis, symptomatic treatment and outpatient follow-up, as well as potentially worrisome signs or symptoms that should prompt reevaluation in the emergency department. She is being discharged with prescription for Xanax, 6 tablets. - Sepsis Event Vital Signs: Vital Signs - 24 hr 06/18/18 06/18/18 09:35 11:54 Temperature 36.5 C 36.9 C Heart Rate 102 H 102 H Respiratory 22 20 Rate Blood Pressure 157/111 H 143/87 H O2 Saturation 99 99 Oxygen O2 Source Room air Departure - Departure Disposition: 01 Home, Self Care Clinical Impression: Anxiety GERD (gastroesophageal reflux disease) Qualifiers: Esophagitis presence: esophagitis presence not specified Qualified Code(s): K21.9 - Gastro-esophageal reflux disease without esophagitis Condition: Stable Instructions: ED Stress React, ED GERD Prescriptions: Alprazolam [Xanax] 0.5 mg PO BID PRN #6 tablet PRN Reason: Anxiety Comments: Minimize coffee, ana, alcohol. You can use liquid antacid, such as Maalox or Mylanta, if you develop recurrent discomfort. You can use Xanax as prescribed if needed for anxiety associated with airplane flight. Follow up with primary physician. Call to schedule appointment. Return to the emergency [facility] if you develop increasing pain, shortness of breath, or otherwise worsening symptoms. Discharge Date/Time: 06/18/18 13:04
== END 2018-06-18 13:04 | disposition home or self-care (01) ==
LOC: ED 09:26
DX: K21.9 Gastro-esophageal reflux disease without esophagitis (principal); F41.9 Anxiety disorder, unspecified
CPT/HCPCS: 99283; A9270; Q0162

== ENCOUNTER 2018-10-22 09:41 | Outpatient (CLI) | payer MEDICAID ==
--- NOTE | 2018-10-22 12:07 | XRAY Report ---
Reason: PAIN IN UNSPECIFIED JOINT, LOW BACK PAIN Procedure Date: 10/22/2018 Accession Number: [id number] / [id number] Procedure: XR - Lumbar Spine 2 View CPT Code: FULL RESULT: EXAM: LUMBOSACRAL SPINE RADIOGRAPHY EXAM DATE: 10/22/2018 10:12 AM. CLINICAL HISTORY: Pain in unspecified joint, low back pain. COMPARISONS: None. TECHNIQUE: 3 views. FINDINGS: Alignment: Normal. No spondylolisthesis or scoliosis. Bones: Five [id number]-scwdzhr lumbar vertebral bodies are present. No fractures or bone lesions. Disks: Normal. Disk heights are maintained. Facets: No degenerative changes. Sacroiliac Joints: Unremarkable. Soft Tissues: Normal. The visualized bowel gas pattern is normal. IMPRESSION: Normal lumbar spine radiography. [facility]
--- NOTE | 2018-10-22 12:07 | XRAY Report ---
Reason: PAIN IN UNSPECIFIED JOINT, LOW BACK PAIN Procedure Date: 10/22/2018 Accession Number: [id number] / [id number] Procedure: XR - Hip w/Pelvis 2-3V LT CPT Code: FULL RESULT: EXAM: LEFT HIP AND PELVIS RADIOGRAPHY EXAM DATE: 10/22/2018 10:12 AM. HISTORY: Hip pain, low back pain. COMPARISONS: None. TECHNIQUE: 1 view of the pelvis and 1 view of the hip. FINDINGS: Bones: Normal. No fracture or bone lesion. Joints: The bilateral hip, pubis symphysis, and sacroiliac joints are preserved. Soft Tissues: An intrauterine device is seen projecting over the central pelvis. IMPRESSION: Normal pelvis and hip radiography. [facility]
== END 2018-10-22 09:42 | disposition home or self-care (01) ==
LOC: DI 09:41
PROVIDERS: ATTEND Internal Medicine
DX: M54.5 Low back pain (principal); M25.50 Pain in unspecified joint
CPT/HCPCS: 72100

== ENCOUNTER 2018-12-25 21:43 | Emergency (ER) | payer MEDICAID ==
[2018-12-25] MEDS ORDERED: ACETAMINOPHEN 500 MG TABLET PO STA (22:05)
[2018-12-25] MEDS ORDERED: DEXAMETHASONE 10 MG/ML VIAL PO STA (22:51)
--- NOTE | 2018-12-25 22:54 | ED Physician Documentation ---
PD HPI HEENT - Stated complaint Stated Complaint: FLU SX - Chief complaint Chief Complaint: Resp - Additional information Additional information: 18-year-old female presents the emergency department with several days of sore throat, generally not feeling well, body aches, fevers, chills and now nasal congestion and cough. Symptoms have slightly worsened today. Symptoms are controlled with vcje-vuy-[id number] medications. No reports of respiratory distress, abdominal pain or chest pain. No other associated symptoms Review of Systems Constitutional: reports: Fever, Chills, Myalgias, Fatigue Eyes: denies: Discharge Ears: reports: Ear pain Nose: reports: Rhinorrhea / runny nose, Congestion Throat: reports: Sore throat Respiratory: reports: Cough. 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 HEENT: None Psych: Depression, Anxiety Musculoskeletal: None Derm: None - Past Surgical History Past Surgical History: No - Present Medications Home Medications: Ambulatory Orders Medication Instructions Recorded Confirmed Etonogestrel [Nexplanon] 68 mg [id number] ONCE 05/12/18 Ibuprofen [Motrin] 600 mg PO TID #30 tab 06/14/18 12/25/18 SUMAtriptan [Imitrex] 25 mg PO BID PRN #10 tablet 06/16/18 12/25/18 DULoxetine [Cymbalta] 30 mg PO BID 12/25/18 12/25/18 Lisdexamfetamine Dimesylate 10 mg PO PRN PRN 12/25/18 12/25/18 [Vyvanse] clonazePAM [Klonopin] 0.5 mg PO PRN PRN 12/25/18 12/25/18 - Allergies Allergies/Adverse Reactions: Allergies Allergy/AdvReac Type Severity Reaction Status Date / Time Penicillins Allergy Severe Hives Verified 12/25/18 21:51 cephalexin [From Keflex] AdvReac Dizziness Verified 12/25/18 21:51 - Social History Does the pt smoke?: No Smoking Status: Never smoker Does the pt drink ETOH?: No Does the pt have substance abuse?: No - Immunizations Immunizations are current?: Yes - POLST Patient has POLST: No PD ED PE NORMAL - General General: Alert and oriented X 3, No acute distress - HEENT HEENT: Atraumatic, PERRL, EOMI, Ears normal, Moist mucous membranes, Pharynx benign - Neck Neck: No adenopathy - Cardiac Cardiac: RRR - Respiratory Respiratory: No respiratory distress, Other - Derm Derm: Normal color - Extremities Extremities: No deformity - Neuro Neuro: Alert and oriented X 3, Normal speech - Psych Psych: Normal affect PD ED PE EXPANDED - HEENT HEENT: Ears normal, Rhinorrhea. 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 I discussed warning signs and recommended returning to the emergency department for any worsening or any concerns. Departure - Departure Disposition: 01 Home, Self Care Clinical Impression: Viral pharyngitis Condition: Good Instructions: ED Pharyngitis Viral Follow-Up: Humera Barnhart MD [Primary Care Provider] - Within 1 week Comments: Please return to the ED for worsening symptoms or any concerns
[2018-12-25] MEDS ORDERED: CHERRY SYRUP 10 ML UDC PO ONE (23:02)
[2018-12-25 23:10] VITALS: BP 141/86
== END 2018-12-25 23:10 | disposition home or self-care (01) ==
LOC: ED 21:43
DX: J02.9 Acute pharyngitis, unspecified (principal); J34.89 Other specified disorders of nose and nasal sinuses
CPT/HCPCS: 87070; 87430; 99282; 99283; A9270

== ENCOUNTER 2019-02-19 15:59 | Emergency (ER) | payer MEDICAID ==
[2019-02-19] MEDS ORDERED: MORPHINE 2 MG/ML SYRINGE IVP STA (16:22)
[2019-02-19] MEDS ORDERED: ONDANSETRON 4 MG/2 ML VIAL IVP STA (16:22)
[2019-02-19] MEDS ORDERED: KETOROLAC 30 MG/ML VIAL IVP STA (16:22)
--- NOTE | 2019-02-19 16:24 | ED Physician Documentation ---
PD HPI ABD PAIN - Stated complaint Stated Complaint: FEMALE - Chief complaint Chief Complaint: Abd Pain - History obtained from History obtained from: Patient - History of Present Illness Timing - onset: Other (This is a previously healthy 19-year-old woman who 5 days ago suddenly developed left flank and left lower quadrant pain radiating into the left leg. It is worse with motion. There is no associated urinary complaints or gross hematuria. She denies a possibility of as she has an IUD in place. She vomited from the pain yesterday. She denies fevers or chills. 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 HEENT: None Psych: Depression, Anxiety Musculoskeletal: None Derm: None - Past Surgical History Past Surgical History: No - Present Medications Home Medications: Ambulatory Orders Medication Instructions Recorded Confirmed DULoxetine [Cymbalta] 30 mg PO BID 12/25/18 12/25/18 Lisdexamfetamine Dimesylate 10 mg PO PRN PRN 12/25/18 12/25/18 [Vyvanse] clonazePAM [Klonopin] 0.5 mg PO PRN PRN 12/25/18 12/25/18 Cyclobenzaprine [Flexeril] 10 mg PO TID PRN #20 tablet 02/19/19 Hydrocodone/Acetaminophen 1 - 2 each PO Q6H PRN #14 tablet 02/19/19 [Hydrocodon-Acetaminophen 5-325] Ibuprofen [Motrin] 800 mg PO Q8H PRN #30 tablet 02/19/19 - Allergies Allergies/Adverse Reactions: Allergies Allergy/AdvReac Type Severity Reaction Status Date / Time Penicillins Allergy Severe Hives Verified 12/25/18 21:51 cephalexin [From Keflex] AdvReac Dizziness Verified 02/19/19 16:05 - Social History Does the pt smoke?: No Smoking Status: Never smoker Does the pt drink ETOH?: No Does the pt have substance abuse?: No - Immunizations Immunizations are current?: Yes - POLST Patient has POLST: No PD ED PE NORMAL - Vitals Vital signs reviewed: Yes - General General: Alert and oriented X 3, No acute distress - HEENT HEENT: PERRL, EOMI - Neck Neck: Supple, no meningeal sign, No bony TTP - Cardiac Cardiac: RRR, No murmur - Respiratory Respiratory: No respiratory distress, Clear bilaterally - Abdomen Abdomen: Other (Mild tenderness in the left lower quadrant and left flank without surgical signs) - Derm Derm: Normal color, Warm and dry - Extremities Extremities: No edema, No calf tenderness / cord - Neuro Neuro: Alert and oriented X 3, Normal speech Results - Vitals Vitals: Vital Signs - 24 hr 02/19/19 02/19/19 16:04 19:22 Temperature 36.9 C 36.4 C L Heart Rate 84 81 Respiratory 20 14 Rate Blood Pressure 171/112 H 148/93 H O2 Saturation 100 100 Oxygen O2 Source Room air - Labs Labs: Laboratory Tests 02/19/19 02/19/19 02/19/19 16:25 17:00 17:00 WBC 10.0 RBC 4.25 Hgb 12.1 Hct 35.7 L MCV 84.0 MCH 28.5 MCHC 33.9 RDW 14.5 Plt Count 522 H MPV 7.1 L Neut # (Auto) 4.6 Lymph # (Auto) 4.8 H [place] # (Auto) 0.5 Eos # (Auto) 0.1 Baso # (Auto) 0.1 Absolute Nucleated RBC 0.00 Nucleated RBC % 0.0 Sodium 139 Potassium 3.8 Chloride 104 Carbon Dioxide 28 Anion Gap 7.0 BUN 12 Creatinine 0.6 Estimated GFR (MDRD) 126 Glucose 106 H Calcium 9.3 Total Bilirubin 0.8 AST 15 ALT 16 Alkaline Phosphatase 60 Total Protein 8.2 Albumin 4.1 Globulin 4.1 Albumin/Globulin Ratio 1.0 Lipase 34 Urine Color YELLOW Urine Clarity CLEAR Urine pH 7.0 Ur Specific [place] 1.020 Urine Protein NEGATIVE Urine Glucose (UA) NEGATIVE Urine Ketones NEGATIVE Urine Occult Blood NEGATIVE Urine Nitrite NEGATIVE Urine Bilirubin NEGATIVE Urine Urobilinogen 0.2 (NORMAL) Ur Leukocyte Esterase NEGATIVE Ur Microscopic Review NOT INDICATED Urine Culture Comments NOT INDICATED Urine HCG, Qual NEGATIVE - Rads (name of study) CT A/P Radiology: EMP read contemporaneously (normal) PD MEDICAL DECISION MAKING - ED course ED course: This is a 19-year-old woman with left lower quadrant left flank pain that started suddenly 5 days ago at rest. It does get worse with motion and bending and twisting suggesting muscular cause but the sudden onset at rest and the constant nature would suggest otherwise therefore a thorough workup including labs, ultrasound and eventually a CT were done without pertinent positive findings. Departure - Departure Disposition: 01 Home, Self Care Clinical Impression: Flank pain Abdominal pain Qualifiers: Abdominal location: left lower quadrant Qualified Code(s): R10.32 - Left lower quadrant pain Condition: Stable Record reviewed to determine appropriate education?: Yes Instructions: ED Abdominal Pain Unkn Cause Prescriptions: Cyclobenzaprine [Flexeril] 10 mg PO TID PRN #20 tablet PRN Reason: Spasms Hydrocodone/Acetaminophen [Hydrocodon-Acetaminophen 5-325] 1 - 2 each PO Q6H PRN #14 tablet PRN Reason: pain Ibuprofen [Motrin] 800 mg PO Q8H PRN #30 tablet PRN Reason: PAIN &/OR FEVER Comments: Call your doctor to arrange a follow-up appointment, make the next available appointment. In the interim, return anytime if worse or if new symptoms develop. Your blood pressure was elevated today on check into the emergency department. This does not mean that you have hypertension, it is a common phenomenon to come to the emergency department and have elevated blood pressure. I recommend that you see your primary care physician within the week to have it rechecked when you are feeling better.
[2019-02-19 16:33] LABS: BILIRUBIN,URINE NEGATIVE (NEGATIVE); GLUCOSE, URINE (UA) NEGATIVE (NEGATIVE); KETONES,URINE (UA) NEGATIVE (NEGATIVE); LEUKOCYTE ESTERASE, URINE NEGATIVE (NEGATIVE); NITRITE,URINE NEGATIVE (NEGATIVE); OCCULT BLOOD,URINE NEGATIVE (NEGATIVE); PROTEIN,URINE NEGATIVE (NEGATIVE); UROBILINOGEN,URINE 0.2 (NORMAL) E.U./dL (NORMAL)
[2019-02-19 16:39] LABS: CLARITY,URINE CLEAR (CLEAR); HCG UR QUAL NEGATIVE
[2019-02-19 17:11] LABS: BASOPHILS # (AUTO) 0.1 10^3/uL (0.0-0.1); BASOPHILS % (AUTO) 0.7 %; EOSINOPHILS # (AUTO) 0.1 10^3/uL (0.0-0.7); EOSINOPHILS % (AUTO) 1.3 %; HGB - HEMOGLOBIN 12.1 g/dL (12.0-16.0); LYMPHOCYTES # (AUTO) 4.8 10^3/uL (1.5-3.5); LYMPHOCYTES % (AUTO) 47.5 %; MEAN CORPUSCULAR HEMOGLOBIN 28.5 pg (27.0-31.0); MEAN CORPUSCULAR HGB CONC 33.9 g/dL (32.0-36.0); MEAN PLATELET VOLUME 7.1 fL (7.9-10.8); MONOCYTES # (AUTO) 0.5 10^3/uL (0.0-1.0); MONOCYTES % (AUTO) 4.7 %; NEUTROPHILS # (AUTO) 4.6 10^3/uL (1.5-6.6); NEUTROPHILS % (AUTO) 45.8 %; PLT - PLATELET COUNT 522 10^3/uL (130-450); RED BLOOD COUNT 4.25 10^6/uL (4.20-5.40); RED CELL DISTRIBUTION WIDTH 14.5 % (12.0-15.0)
[2019-02-19 17:18] LABS: ALBUMIN 4.1 g/dL (3.2-5.5); BILIRUBIN,TOTAL 0.8 mg/dL (0.2-1.0); CALCIUM 9.3 mg/dL (8.5-10.3); CREATININE 0.6 mg/dL (0.4-1.0); TOTAL PROTEIN 8.2 g/dL (6.7-8.2)
--- NOTE | 2019-02-19 18:39 | Ultrasound Report ---
Reason: pelvic pain, L Procedure Date: 02/19/2019 Accession Number: [id number] / [id number] Procedure: US - Pelvic w/Transvag+Doppler Comp CPT Code: FULL RESULT: EXAM: PELVIC ULTRASOUND EXAM DATE: 02/19/2019 06:26 PM. CLINICAL HISTORY: Pelvic pain, L. COMPARISON: PEL NON OB W/TV DOP 12/18/2017 10:59 PM. TECHNIQUE: Realtime transabdominal pelvic scan performed to identify the uterus and adnexa and as an overview of other pelvic structures, followed by transvaginal scan to provide greater detail of the uterus and adnexa, with static image documentation. FINDINGS: Uterus: 7.3 x 4 x 4.6 cm, volume 71 cc. Anteverted position. Normal overall size and echotexture. Masses: None. Endometrium: There is an IUD located centrally within the endometrial canal obscuring visualization of the endometrium. Cervix: Unremarkable. Right Ovary: 3.4 x 2.7 x 3.0 cm, volume 14.2 cc. There are multiple normal-appearing follicles. No dominant cyst. Blood flow present on Doppler. Left Ovary: 3.2 x 2.2 x 2.8 cm, volume 10 cc. Normal for age. There are multiple normal follicles. There is a hypoechoic complex cyst measuring 1.8 x 1.5 x 1.4 cm. Free Fluid: None. Other: None. IMPRESSION: 1. No ultrasound abnormality to explain symptoms. Normal appearance of uterus and ovaries. IUD centrally located in uterus. [facility]
[2019-02-19] MEDS ORDERED: IOVERSOL 320 100 ML VIAL IVP ONE ×3 (19:13→19:42)
[2019-02-19 19:23] VITALS: BP 148/93
--- NOTE | 2019-02-19 20:10 | CT Report ---
Reason: IV only, LLQ/flank pain Procedure Date: 02/19/2019 Accession Number: [id number] / [id number] Procedure: CT - Abdomen/Pelvis W CPT Code: FULL RESULT: EXAM: CT ABDOMEN AND PELVIS EXAM DATE: 02/19/2019 07:40 PM. CLINICAL HISTORY: IV only, LLQ/flank pain. COMPARISONS: ABDOMEN/PELVIS W/ 02/19/2019 7:25 PM. TECHNIQUE: Routine helical CT imaging was performed through the abdomen and pelvis. IV contrast: opti 320 90ml. Enteric contrast: No. Reconstructions: Coronal and sagittal. In accordance with CT protocol optimization, one or more of the following dose reduction techniques were utilized for this exam: automated exposure control, adjustment of mA and/or KV based on patient size, or use of iterative reconstructive technique. FINDINGS: Lung Bases: Unremarkable. Liver: Normal. No masses. Gallbladder/Bile Ducts: No radiopaque gallstones. No biliary dilation. Spleen: Normal. Pancreas: Normal. Adrenal Glands: Normal. Kidneys: Normal. No masses or hydronephrosis. Peritoneal Cavity/Bowel: Unremarkable stomach and duodenum. Normal caliber bowel loops without signs of obstruction. No pneumoperitoneum or ascites noted. Appendix is normal. No intra-abdominal discrete fluid collection. No enlarged abdominal lymph nodes. Pelvic Organs: Unremarkable urinary bladder for degree of distention. IUD seen in the uterus. Ovaries appear unremarkable by CT. No free pelvic fluid. Vasculature: No aneurysms or other significant abnormality. Bones: No significant abnormality. Other: None. IMPRESSION: 1. No acute abnormality seen in the abdomen or pelvis by CT. No findings to explain acute abdominal pain. [facility]
[2019-02-19] MEDS ORDERED: CYCLOBENZAPRINE 10 MG Prepack 2 PO PRN (20:16)
[2019-02-19] MEDS ORDERED: HYDROcod/ACET 5/325 Prepack 4 PO STA (20:16)
== END 2019-02-19 20:32 | disposition home or self-care (01) ==
LOC: ED 15:59
DX: R10.32 Left lower quadrant pain (principal); M79.605 Pain in left leg; R03.0 Elevated blood-pressure reading, without diagnosis of hypertension; Z97.5 Presence of (intrauterine) contraceptive device
CPT/HCPCS: 36415; 74177; 76830; 76856; 80053; 81003; 81025; 83690; 85025; 93975; 96374; 96375; 99283; J2270; Q9967; 81001; 87086

== ENCOUNTER 2019-05-13 22:28 | Emergency (ER) | payer MEDICAID ==
[2019-05-13] MEDS ORDERED: DEXAMETHASONE 10 MG/ML VIAL PO STA (23:03)
[2019-05-13] MEDS ORDERED: CYCLOBENZAPRINE 10 MG Prepack 2 PO PRN (23:03)
[2019-05-13] MEDS ORDERED: CHERRY SYRUP 10 ML UDC PO ONE (23:03)
[2019-05-13] MEDS ORDERED: HYDROcod/ACET 5/325 Prepack 4 PO STA (23:03)
[2019-05-13] MEDS ORDERED: KETOROLAC 60 MG/2 ML VIAL IM STA (23:03)
--- NOTE | 2019-05-13 23:35 | ED Physician Documentation ---
PD HPI BACK PAIN - Stated complaint Stated Complaint: BACK PX - Chief complaint Chief Complaint: Back Pain - History obtained from History obtained from: Patient - History of Present Illness Timing - onset: How many days ago (5) Timing - duration: Days (5) Timing - details: Abrupt onset, Still present Location: Lower, Right, Left Quality: Pain, Spasm, Sharp Associated symptoms: Numbness. 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 The pain radiates all the way to the foot on the left side and on the right side just into the upper thigh. The patient has some weakness of the left foot but she is able to walk. She has not had these symptoms previously and she does not have any specific injury that she can discern even from a week prior to her onset of symptoms. Her onset of symptoms or soreness on one day and much worse pain on awakening the next morning. She has tried all kinds of things for pain relief including cupping and acupuncture and she has not had relief. Review of Systems Constitutional: denies: Fever Eyes: denies: Decreased vision Ears: denies: Ear pain Nose: denies: Congestion Throat: denies: Sore throat Respiratory: denies: Cough GI: denies: Abdominal Pain, Nausea, Vomiting : denies: Dysuria, Frequency Skin: denies: Rash Musculoskeletal: reports: Back pain. 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 HEENT: None Psych: Depression, Anxiety Musculoskeletal: None Derm: None - Past Surgical History Past Surgical History: Yes HEENT: Tonsil/Adenoidectomy - Present Medications Home Medications: Ambulatory Orders Medication Instructions Recorded Confirmed DULoxetine [Cymbalta] 30 mg PO BID 12/25/18 12/25/18 Lisdexamfetamine Dimesylate 10 mg PO PRN PRN 12/25/18 12/25/18 [Vyvanse] clonazePAM [Klonopin] 0.5 mg PO PRN PRN 12/25/18 12/25/18 Cyclobenzaprine [Flexeril] 10 mg PO TID PRN #20 tablet 02/19/19 Hydrocodone/Acetaminophen 1 - 2 each PO Q6H PRN #14 tablet 02/19/19 [Hydrocodon-Acetaminophen 5-325] Ibuprofen [Motrin] 800 mg PO Q8H PRN #30 tablet 02/19/19 Cyclobenzaprine [Flexeril] 10 mg PO TID PRN #20 tablet 05/13/19 Hydrocodone/Acetaminophen 1 - 2 each PO Q6H PRN #14 tablet 05/13/19 [Hydrocodon-Acetaminophen 5-325] - Allergies Allergies/Adverse Reactions: Allergies Allergy/AdvReac Type Severity Reaction Status Date / Time Penicillins Allergy Severe Hives Verified 05/13/19 22:37 cephalexin [From Keflex] AdvReac Dizziness Verified 05/13/19 22:37 - Social History Does the pt smoke?: No Smoking Status: Never smoker Does the pt drink ETOH?: No Does the pt have substance abuse?: No - Immunizations Immunizations are current?: Yes - POLST Patient has POLST: No PD ED PE NORMAL - Vitals Vital signs reviewed: Yes (hypertensive ) - General General: Alert and oriented X 3, No acute distress, Well developed/nourished - HEENT HEENT: Atraumatic, PERRL, EOMI - Respiratory Respiratory: No respiratory distress - Back Back: No CVA TTP, No spinal TTP, Other (There is pain to palpation to the lower lumbar paraspinous muscles more on the left. There is not central pain. There are areas over the upper back where cupping has been done. 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, No sensory deficit, Normal speech, Other (There is some subtle weakness to dorsiflexion of the left great toe compared to the right ) Eye Opening: Spontaneous Motor: Obeys Commands Verbal: Oriented GCS Score: 15 - Psych Psych: Normal mood, Normal affect Results - Vitals Vitals: Vital Signs - 24 hr 05/13/19 22:30 Temperature 36.4 C L Heart Rate 90 Respiratory 18 Rate Blood Pressure 179/119 H O2 Saturation 100 Oxygen O2 Source Room air PD MEDICAL DECISION MAKING - ED course Complexity details: considered differential, d/w patient, d/w family ED course: 19-year-old female with acute sciatica has been having symptoms for 5 days. She is administered dexamethasone 10 mg orally and Toradol [address] will [address] her on some Flexeril and hydrocodone and she will follow up with Dr. Barnhart. Departure - Departure Disposition: Home, Self Care Clinical Impression: Sciatica Qualifiers: Laterality: bilateral Qualified Code(s): M54.31 - Sciatica, right side; M54.32 - Sciatica, left side Condition: Stable Instructions: ED Sciatica Follow-Up: Humera Barnhart MD [Primary Care Provider] - Prescriptions: Cyclobenzaprine [Flexeril] 10 mg PO TID PRN #20 tablet PRN Reason: Spasms Hydrocodone/Acetaminophen [Hydrocodon-Acetaminophen 5-325] 1 - 2 each PO Q6H PRN #14 tablet PRN Reason: pain
[2019-05-14 00:01] VITALS: BP 151/70
== END 2019-05-14 00:01 | disposition home or self-care (01) ==
LOC: ED 22:28
DX: M54.31 Sciatica, right side (principal); M54.32 Sciatica, left side
CPT/HCPCS: 96372; 99283; A9270

== ENCOUNTER 2020-03-24 13:20 | Emergency (ER) | payer MEDICAID ==
[2020-03-24 13:46] LABS: BILIRUBIN,URINE NEGATIVE (NEGATIVE); GLUCOSE, URINE (UA) NEGATIVE (NEGATIVE); KETONES,URINE (UA) NEGATIVE (NEGATIVE); LEUKOCYTE ESTERASE, URINE MODERATE (NEGATIVE); NITRITE,URINE NEGATIVE (NEGATIVE); OCCULT BLOOD,URINE MODERATE (NEGATIVE); PROTEIN,URINE NEGATIVE (NEGATIVE); UROBILINOGEN,URINE 0.2 (NORMAL) E.U./dL (NORMAL)
[2020-03-24 13:49] LABS: CLARITY,URINE HAZY (CLEAR); HCG UR QUAL NEGATIVE
[2020-03-24 13:59] LABS: BACTERIA,URINE Few /HPF (None Seen); RBC,URINE 0-5 /HPF (0-5); SQUAMOUS EPITHELIAL CELL,UR FEW Squamous (<= Few)
[2020-03-24 14:01] LABS: BASOPHILS # (AUTO) 0.1 10^3/uL (0.0-0.1); BASOPHILS % (AUTO) 0.6 %; EOSINOPHILS # (AUTO) 0.1 10^3/uL (0.0-0.7); HGB - HEMOGLOBIN 12.6 g/dL (12.0-16.0); LYMPHOCYTES % (AUTO) 23.9 %; MEAN CORPUSCULAR HEMOGLOBIN 28.7 pg (27.0-31.0); MONOCYTES # (AUTO) 0.5 10^3/uL (0.0-1.0); MONOCYTES % (AUTO) 3.7 %; NEUTROPHILS # (AUTO) 8.7 10^3/uL (1.5-6.6); NEUTROPHILS % (AUTO) 70.4 %; PLT - PLATELET COUNT 448 10^3/uL (130-450); RED BLOOD COUNT 4.39 10^6/uL (4.20-5.40); RED CELL DISTRIBUTION WIDTH 13.2 % (12.0-15.0); WHITE BLOOD COUNT 12.3 x10^3/uL (4.8-10.8)
[2020-03-24 14:44] LABS: ALBUMIN 4.3 g/dL (3.2-5.5); ALBUMIN/GLOBULIN RATIO 1.2 (1.0-2.2); CALCIUM 9.1 mg/dL (8.5-10.3); CREATININE 0.7 mg/dL (0.4-1.0); TOTAL PROTEIN 7.8 g/dL (6.7-8.2)
[2020-03-24] MEDS ORDERED: CIPROFLOXACIN 250 MG TABLET PO STA (15:57)
--- NOTE | 2020-03-24 15:59 | ED Physician Documentation ---
PD HPI FEMALE - Stated complaint Stated Complaint: FEMALE - Chief complaint Chief Complaint: UTI - History obtained from History obtained from: Patient - History of Present Illness Timing - onset: How many weeks ago (1) Timing - duration: Weeks (1) Timing - details: Gradual onset Pain level max: 8 Pain level max: 8 Associated symptoms: Back pain (R flank pain), Dysuria, Urinary frequency. 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 HEENT: None Psych: Depression, Anxiety Musculoskeletal: None Derm: None - Past Surgical History Past Surgical History: Yes HEENT: Tonsil/Adenoidectomy - Present Medications Home Medications: Ambulatory Orders Medication Instructions Recorded Confirmed DULoxetine [Cymbalta] 30 mg PO BID 12/25/18 12/25/18 Lisdexamfetamine Dimesylate 10 mg PO PRN PRN 12/25/18 12/25/18 [Vyvanse] clonazePAM [Klonopin] 0.5 mg PO PRN PRN 12/25/18 12/25/18 Cyclobenzaprine [Flexeril] 10 mg PO TID PRN #20 tablet 02/19/19 Hydrocodone/Acetaminophen 1 - 2 each PO Q6H PRN #14 tablet 02/19/19 [Hydrocodon-Acetaminophen 5-325] Ibuprofen [Motrin] 800 mg PO Q8H PRN #30 tablet 02/19/19 Cyclobenzaprine [Flexeril] 10 mg PO TID PRN #20 tablet 05/13/19 Hydrocodone/Acetaminophen 1 - 2 each PO Q6H PRN #14 tablet 05/13/19 [Hydrocodon-Acetaminophen 5-325] Ciprofloxacin HCl [Cipro] 500 mg PO BID #20 tablet 03/24/20 - Allergies Allergies/Adverse Reactions: Allergies Allergy/AdvReac Type Severity Reaction Status Date / Time Penicillins Allergy Severe Hives Verified 05/13/19 22:37 cephalexin [From Keflex] AdvReac Dizziness Verified 05/13/19 22:37 - Social History Does the pt smoke?: No Smoking Status: Never smoker Does the pt drink ETOH?: No Does the pt have substance abuse?: No - Immunizations Immunizations are current?: Yes - POLST Patient has POLST: No PD ED PE NORMAL - Vitals Vital signs reviewed: Yes - General General: Alert and oriented X 3, No acute distress - HEENT HEENT: Moist mucous membranes - Neck Neck: Supple, no meningeal sign - Cardiac Cardiac: RRR - Respiratory Respiratory: No respiratory distress, Clear bilaterally - Abdomen Abdomen: Soft, Non tender, Non distended - Back Back: Other (Mild right CVA tenderness. No left CVA tenderness) - Derm Derm: Warm and dry - Neuro Neuro: Alert and oriented X 3 - Psych Psych: Normal mood, Normal affect Results - Vitals Vitals: Vital Signs - 24 hr 03/24/20 03/24/20 13:28 16:08 Temperature 37.3 C 36.9 C Heart Rate 88 78 Respiratory 16 16 Rate Blood Pressure 137/61 H 133/67 H O2 Saturation 96 99 Oxygen O2 Source Room air - Labs Labs: Laboratory Tests 03/24/20 03/24/20 03/24/20 13:38 13:50 13:50 WBC 12.3 H RBC 4.39 Hgb 12.6 Hct 38.2 MCV 87.0 MCH 28.7 MCHC 33.0 RDW 13.2 Plt Count 448 MPV 9.0 Neut # (Auto) 8.7 H Lymph # (Auto) 3.0 Porter # (Auto) 0.5 Eos # (Auto) 0.1 Baso # (Auto) 0.1 Absolute Nucleated RBC 0.00 Nucleated RBC % 0.0 Sodium 138 Potassium 3.9 Chloride 104 Carbon Dioxide 22 Anion Gap 12.0 BUN 12 Creatinine 0.7 Estimated GFR (MDRD) 105 Glucose 171 H Calcium 9.1 Total Bilirubin 1.0 AST 28 ALT 30 Alkaline Phosphatase 59 Total Protein 7.8 Albumin 4.3 Globulin 3.5 Albumin/Globulin Ratio 1.2 Lipase 43 Urine Color DARK YELLOW Urine Clarity HAZY Urine pH 6.0 Ur Specific [place] >=1.030 H Urine Protein NEGATIVE Urine Glucose (UA) NEGATIVE Urine Ketones NEGATIVE Urine Occult Blood MODERATE H Urine Nitrite NEGATIVE Urine Bilirubin NEGATIVE Urine Urobilinogen 0.2 (NORMAL) Ur Leukocyte Esterase MODERATE H Urine RBC 0-5 Urine WBC 11-25 H Ur Squamous Epith Cells FEW Squamous Urine Bacteria Few Ur Microscopic Review INDICATED Urine Culture Comments INDICATED Urine HCG, Qual NEGATIVE PD MEDICAL DECISION MAKING - ED course Complexity details: reviewed results, re-evaluated patient, considered differential, d/w patient ED course: Patient appears to have an early pyelonephritis. Will place on oral antibiotics for home. She is well-appearing, nontoxic. Afebrile. Patient counseled regarding signs and symptoms for which I believe and urgent re-evaluation would be necessary. Patient with good understanding of and agreement to plan and is comfortable going home at this time This document was made in part using voice recognition software. While efforts are made to proofread this document, sound alike and grammatical errors may occur. Departure - Departure Disposition: 01 Home, Self Care Clinical Impression: Urinary tract infection Qualifiers: Urinary tract infection type: acute pyelonephritis Qualified Code(s): N10 - Acute pyelonephritis Condition: Good Instructions: ED Kidney Infec Female Follow-Up: Yessi Ryan PA [Primary Care Provider] - Within 1 week Prescriptions: Ciprofloxacin HCl [Cipro] 500 mg PO BID #20 tablet Comments: Take all antibiotics until gone. Return if you worsen. Discharge Date/Time: 03/24/20 16:08
[2020-03-24 16:09] VITALS: BP 133/67
== END 2020-03-24 16:08 | disposition home or self-care (01) ==
LOC: ED 13:20
DX: N10 Acute pyelonephritis (principal); Z88.0 Allergy status to penicillin; Z88.1 Allergy status to other antibiotic agents
CPT/HCPCS: 36415; 80053; 81001; 81025; 83690; 85025; 87086; 99283; 99284; A9270; 81003

== ENCOUNTER 2020-04-09 17:24 | Emergency (ER) | payer MEDICAID ==
[2020-04-09] MEDS ORDERED: KETOROLAC 30 MG/ML VIAL IVP STA (18:03)
--- NOTE | 2020-04-09 18:04 | ED Physician Documentation ---
History of Present Illness - Stated complaint Stated Complaint: LOWER BACK PX - Chief complaint Chief Complaint: Back Pain - History obtained from History obtained from: Patient - History of Present Illness Timing: Prior to arrival Pain level max: 9 Pain level now: 4 Quality: sharp Radiates to: groin Improved by: naprosyn Worsened by: walking, activity - Additonal information Additional information: 20 year old female here with right hip and low back pain after a fall when hiking yesterday. fell onto hard ground/dirt. no LOC. stable gait. Reports pain radiates form midline low back to the front of her groin and she feels a click in her hip. worried she has a herniated disc no fevers, denies saddle anesthesia. No hx of IVDU. has a hx of lupus, but is not on immune modulators. Denies difficulty or pain with urination has a hx o f low back pain and sciatica, but this feels different. pt also reports a hx of fibromyalgia and lupus. 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 HEENT: None Psych: Depression, Anxiety Musculoskeletal: None Derm: None Other Past Medical History: lupus, fibromyalgia - Past Surgical History Past Surgical History: Yes HEENT: Tonsil/Adenoidectomy - Present Medications Home Medications: Ambulatory Orders Medication Instructions Recorded Confirmed DULoxetine [Cymbalta] 30 mg PO BID 12/25/18 12/25/18 Lisdexamfetamine Dimesylate 10 mg PO PRN PRN 12/25/18 12/25/18 [Vyvanse] clonazePAM [Klonopin] 0.5 mg PO PRN PRN 12/25/18 12/25/18 Cyclobenzaprine [Flexeril] 10 mg PO TID PRN #20 tablet 02/19/19 Hydrocodone/Acetaminophen 1 - 2 each PO Q6H PRN #14 tablet 02/19/19 [Hydrocodon-Acetaminophen 5-325] Ibuprofen [Motrin] 800 mg PO Q8H PRN #30 tablet 02/19/19 Cyclobenzaprine [Flexeril] 10 mg PO TID PRN #20 tablet 05/13/19 Hydrocodone/Acetaminophen 1 - 2 each PO Q6H PRN #14 tablet 05/13/19 [Hydrocodon-Acetaminophen 5-325] Ciprofloxacin HCl [Cipro] 500 mg PO BID #20 tablet 03/24/20 Naproxen [Naprosyn] 500 mg PO BID PRN #20 tablet 04/09/20 - Allergies Allergies/Adverse Reactions: Allergies Allergy/AdvReac Type Severity Reaction Status Date / Time Penicillins Allergy Severe Hives Verified 04/09/20 17:51 amoxicillin Allergy Unknown Verified 04/09/20 17:51 cephalexin [From Keflex] AdvReac Dizziness Verified 04/09/20 17:51 - Social History Does the pt smoke?: No Smoking Status: Never smoker Does the pt drink ETOH?: No Does the pt have substance abuse?: No - Immunizations Immunizations are current?: Yes - POLST Patient has POLST: No PD ED PE NORMAL - General General: Alert and oriented X 3, No acute distress, Well developed/nourished, Other (morbid obesity) - HEENT HEENT: Atraumatic - Neck Neck: Supple, no meningeal sign, No adenopathy - Cardiac Cardiac: RRR, Strong equal pulses - Respiratory Respiratory: No respiratory distress, Clear bilaterally - Back Back: No CVA TTP, Other (midline lower tenderness L5S1 that radiates across the paraspinous region on the right) - Derm Derm: Normal color, Other (no e/o trauma, ecchymosis on low back/hip) - Extremities Extremities: No deformity - Neuro Neuro: Alert and oriented X 3, No motor deficit, No sensory deficit - Psych Psych: Normal mood - Free text exam Free text exam: motor strength 5/5 BLE - full ROM lower lumbar spine - mild right paraspinous tenderness, though some tenderness elicited midline without crepitus, erythema - able to walk on heel/toes; perform moderate squat - Reduced ROM right hip to internal and external rotation secondary to pain - no leg shortening PD ED PE EXPANDED - Back Back: Normal ROM, Soft tissue tenderness, Other (full ROM of lowr lumbar spine; motor strength 5/5 BLE; normal gait without limp) Results - Vitals Vitals: Vital Signs - 24 hr 04/09/20 17:51 Temperature 36.8 C Heart Rate 80 Respiratory 16 Rate Blood Pressure 150/88 H O2 Saturation 99 Oxygen O2 Source Room air - Rads (name of study) right hip Radiology: Final report received (negative for acute fx/dislocation) lumbar Radiology: Final report received (no acute fracture) PD MEDICAL DECISION MAKING - ED course Complexity details: reviewed results, considered differential, d/w patient, other ED course: Acute low back pain and right hip pain after a fall onto hard ground 24 hours ago - ddx includes but not limited to strain, contusion, fracture, sciatica, disc herniation - reassuring exam with normal gait and no red flags suggestive of central cord complication - xray of hip/lumbar spin normal without e/o fx - pt given toradol in ED with mild relief of pain; will recommend naprosyn for home use and prn ice - discussed red flags for return Departure - Departure Disposition: 01 Home, Self Care Clinical Impression: Hip pain, right Back pain Qualifiers: Back pain location: low back pain Chronicity: acute Back pain laterality: right Sciatica presence: without sciatica Qualified Code(s): M54.5 - Low back pain Condition: Good Record reviewed to determine appropriate education?: Yes Instructions: ED Low Back Pain Injury Follow-Up: Yessi Ryan PA [Primary Care Provider] - Prescriptions: Naproxen [Naprosyn] 500 mg PO BID PRN #20 tablet PRN Reason: Pain Comments: Your xrays look good. nothing is broken. I think this is most likely a bruise deep in the muscles that should improve over the next week or so. Please take the naprosyn twice daily as needed. Return here if pain worsening, you have numbness in your legs or can not walk normally
--- NOTE | 2020-04-09 19:02 | XRAY Report ---
Reason: fall onto hip yesterday; pain radiates into groin Procedure Date: 04/09/2020 Accession Number: [id number] / [id number] Procedure: XR - Hip w/Pelvis 2-3V RT CPT Code: Final Report FULL RESULT: PROCEDURE: Hip w/Pelvis 2-3V RT INDICATIONS: fall onto hip yesterday; pain radiates into groin TECHNIQUE: AP pelvis with lateral view(s) of the bilateral hip(s). COMPARISON: X-ray lumbar spine 04/09/2020 FINDINGS: Bones: No fractures or dislocations. Pelvic ring appears intact. No suspicious bony lesions. Soft tissues: The visualized bowel gas pattern is normal. No suspicious soft tissue calcifications. Intrauterine device is present to the left of midline. IMPRESSION: No visualized acute fracture or dislocation. However, occult injury cannot be excluded. Recommend short interval imaging follow-up in 7-10 days as clinically indicated for additional evaluation. Reviewed by: Yanira Hassan MD on 04/09/2020 6:58 PM PDT Approved by: Yanira Hassan MD on 04/09/2020 6:58 PM PDT Station ID: [id number]
--- NOTE | 2020-04-09 19:03 | XRAY Report ---
Reason: midline lumbar pain after fall Procedure Date: 04/09/2020 Accession Number: [id number] / [id number] Procedure: XR - Lumbar Spine 2 View CPT Code: Final Report FULL RESULT: PROCEDURE: Lumbar Spine 2 View INDICATIONS: midline lumbar pain after fall TECHNIQUE: 2 views of the lumbar spine were acquired. COMPARISON: None. FINDINGS: Bones: 5 [id number] vertebrae are present. There is normal bony alignment. No vertebral body compression fractures. No suspicious bony lesions. Minimal disc space narrowing is noted at L5-S1. Soft tissues: Overlying bowel gas pattern is normal. No suspicious soft tissue calcifications. IUD is noted to the left of midline within the pelvis. IMPRESSION: No visualized acute fracture or dislocation. However, occult injury cannot be excluded. Recommend short interval imaging follow-up in 7-10 days as clinically indicated for additional evaluation. Reviewed by: Yanira Hassan MD on 04/09/2020 6:59 PM PDT Approved by: Yanira Hassan MD on 04/09/2020 6:59 PM PDT Station ID: [id number]
[2020-04-09 19:20] VITALS: BP 148/86
== END 2020-04-09 19:19 | disposition home or self-care (01) ==
LOC: ED 17:24
DX: M54.5 Low back pain (principal); M25.551 Pain in right hip; W18.30XA Fall on same level, unspecified, initial encounter; Y93.01 Activity, walking, marching and hiking; M32.9 Systemic lupus erythematosus, unspecified; M79.7 Fibromyalgia; E66.01 Morbid (severe) obesity due to excess calories; Z68.42 Body mass index [BMI] 45.0-49.9, adult
CPT/HCPCS: 72100; 96374; 99284

== ENCOUNTER 2020-05-23 23:10 | Emergency (ER) | payer MEDICAID ==
--- NOTE | 2020-05-23 23:21 | ED Physician Documentation ---
History of Present Illness - Stated complaint Stated Complaint: VILLALTA - Chief complaint Chief Complaint: Neuro - History obtained from History obtained from: Patient (Patient is a 20-year-old female with a history of migraine headache aches presents tonight after she took her home migraine medication which did not resolve her symptoms, denies fever. Headache is not maximal in intensity not sudden in onset and notThe worst headache of her lif e.Denies neck pain) Review of Systems Constitutional: reports: Reviewed and negative Eyes: reports: Reviewed and negative Ears: reports: Reviewed and negative Nose: reports: Reviewed and negative Throat: reports: Reviewed and negative Cardiac: reports: Reviewed and negative Respiratory: reports: Reviewed and negative GI: reports: Reviewed and negative : reports: Reviewed and negative Skin: reports: Reviewed and negative Musculoskeletal: reports: Reviewed and negative Neurologic: reports: Headache Psychiatric: reports: Reviewed and negative Endocrine: reports: Reviewed and negative Immunocompromised: reports: Reviewed and negative PD PAST MEDICAL HISTORY - Past Medical History Cardiovascular: None Respiratory: Pneumonia Neuro: None Endocrine/Autoimmune: None GI: None 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 HEENT: None Psych: Depression, Anxiety Musculoskeletal: None Derm: None - Past Surgical History Past Surgical History: Yes HEENT: Tonsil/Adenoidectomy - Present Medications Home Medications: Ambulatory Orders Medication Instructions Recorded Confirmed DULoxetine [Cymbalta] 30 mg PO BID 12/25/18 12/25/18 Lisdexamfetamine Dimesylate 10 mg PO PRN PRN 12/25/18 12/25/18 [Vyvanse] clonazePAM [Klonopin] 0.5 mg PO PRN PRN 12/25/18 12/25/18 Cyclobenzaprine [Flexeril] 10 mg PO TID PRN #20 tablet 02/19/19 Hydrocodone/Acetaminophen 1 - 2 each PO Q6H PRN #14 tablet 02/19/19 [Hydrocodon-Acetaminophen 5-325] Ibuprofen [Motrin] 800 mg PO Q8H PRN #30 tablet 02/19/19 Cyclobenzaprine [Flexeril] 10 mg PO TID PRN #20 tablet 05/13/19 Hydrocodone/Acetaminophen 1 - 2 each PO Q6H PRN #14 tablet 05/13/19 [Hydrocodon-Acetaminophen 5-325] Ciprofloxacin HCl [Cipro] 500 mg PO BID #20 tablet 03/24/20 Naproxen [Naprosyn] 500 mg PO BID PRN #20 tablet 04/09/20 - Allergies Allergies/Adverse Reactions: Allergies Allergy/AdvReac Type Severity Reaction Status Date / Time Penicillins Allergy Severe Hives Verified 05/23/20 23:17 amoxicillin Allergy Unknown Verified 05/23/20 23:17 cephalexin [From Keflex] AdvReac Dizziness Verified 05/23/20 23:17 - Social History Does the pt smoke?: No Smoking Status: Never smoker Does the pt drink ETOH?: No Does the pt have substance abuse?: No - Immunizations Immunizations are current?: Yes - POLST Patient has POLST: No PD ED PE NORMAL - Vitals Vital signs reviewed: Yes - General General: Alert and oriented X 3, No acute distress - HEENT HEENT: PERRL - Neck Neck: Supple, no meningeal sign - Cardiac Cardiac: RRR, No murmur - Respiratory Respiratory: Clear bilaterally - Abdomen Abdomen: Normal bowel sounds, Soft, Non tender, Non distended - Derm Derm: Warm and dry - Extremities Extremities: No deformity - Neuro Neuro: Alert and oriented X 3, monitoring and evaluation advisor 2-12 intact, No motor deficit, No sensory deficit, Other (No facial droop, no pronator drift no unilateral weakness no vertical nystagmus) - Psych Psych: Normal mood, Normal affect Results - Vitals Vitals: Vital Signs - 24 hr 05/23/20 05/24/20 23:13 00:18 Temperature 36.7 C Heart Rate 79 88 Respiratory 16 16 Rate Blood Pressure 136/76 H 132/80 H O2 Saturation 99 99 Oxygen O2 Source Room air - Labs Labs: Laboratory Tests 05/23/20 05/23/20 23:45 23:45 WBC 13.1 H RBC 4.05 L Hgb 11.6 L Hct 35.1 L MCV 86.7 MCH 28.6 MCHC 33.0 RDW 13.2 Plt Count 428 MPV 9.1 Neut # (Auto) Not Reportable Lymph # (Auto) Not Reportable [place] # (Auto) Not Reportable Eos # (Auto) Not Reportable Baso # (Auto) Not Reportable Absolute Nucleated RBC Not Reportable Total Counted 100 Band Neuts % (Manual) 0 Reactive Lymphs % (Man) 25 Abnorm Lymph % (Manual) 0 Nucleated RBC % Not Reportable Neutrophils # (Manual) 5.6 Lymphocytes # (Manual) 6.4 H Monocytes # (Manual) 0.9 Eosinophils # (Manual) 0.1 Basophils # (Manual) 0.0 Differential Comment MANUAL DIFFERENTIAL Platelet Estimate NORMAL (130-450,000) RBC Morph Micro Appear NORMAL APPEARANCE Sodium 135 Potassium 3.9 Chloride 104 Carbon Dioxide 24 Anion Gap 7.0 BUN 12 Creatinine 0.7 Estimated GFR (MDRD) 105 Glucose 98 Calcium 9.1 PD MEDICAL DECISION MAKING - ED course Complexity details: reviewed results, re-evaluated patient (Headache resolved with IV fluids IV Benadryl and IV Compazine.), considered differential (Migraine headache), d/w patient, other (No red flags on history or physical Exam to sugg est subarachnoid hemorrhage or dural venous sinus thrombosis or meningitis) Departure - Departure Disposition: 01 Home, Self Care Clinical Impression: Migraine headache Qualifiers: Migraine type: unspecified Status migrainosus presence: without status migra inosus Intractability: not intractable Qualified Code(s): G43.909 - Migraine, unspecified, not intractable, without status migrainosus Condition: Stable Instructions: ED Headache Migraine Follow-Up: Yessi Ryan PA [Primary Care Provider] - 05/24/20 Comments: Follow-up with your primary care provider today. Discharge Date/Time: 05/24/20 00:18
[2020-05-23] MEDS ORDERED: diphenhydrAMINE INJ 50 MG/ML VIAL IVP STA (23:27)
[2020-05-23] MEDS ORDERED: PROCHLORPERAZINE 10 MG/2 ML VIAL IVP STA (23:27)
[2020-05-23] MEDS ORDERED: SODIUM CHLORIDE 0.9% 1,000 ML IV STA (23:27)
[2020-05-23 23:58] LABS: BASOPHILS % (AUTO) 0.6 %; EOSINOPHILS % (AUTO) 1.8 %; HGB - HEMOGLOBIN 11.6 g/dL (12.0-16.0); LYMPHOCYTES % (AUTO) 41.1 %; MEAN CORPUSCULAR HEMOGLOBIN 28.6 pg (27.0-31.0); MEAN CORPUSCULAR VOLUME 86.7 fL (81.0-99.0); MEAN PLATELET VOLUME 9.1 fL (7.9-10.8); MONOCYTES % (AUTO) 8.2 %; NEUTROPHILS % (AUTO) 47.9 %; PLT - PLATELET COUNT 428 10^3/uL (130-450); RED BLOOD COUNT 4.05 10^6/uL (4.20-5.40); RED CELL DISTRIBUTION WIDTH 13.2 % (12.0-15.0); WHITE BLOOD COUNT 13.1 x10^3/uL (4.8-10.8)
[2020-05-24 00:05] LABS: CALCIUM 9.1 mg/dL (8.5-10.3); CREATININE 0.7 mg/dL (0.4-1.0)
[2020-05-24 00:06] LABS: ABNORMAL LYMPHS % (MANUAL) 0 %; BAND NEUTROPHILS % (MANUAL) 0 %
[2020-05-24 00:18] VITALS: BP 132/80
[2020-05-24 00:24] LABS: DIFFERENTIAL COMMENT MANUAL DIFFERENTIAL; EOSINOPHILS # (MANUAL) 0.1 10^3/uL (0-0.7); LYMPHOCYTES # (MANUAL) 6.4 10^3/uL (1.5-3.5); LYMPHOCYTES % (MANUAL) 24 %; MONOCYTES # (MANUAL) 0.9 10^3/uL (0.0-1.0); PLATELET ESTIMATE, MANUAL NORMAL (130-450,000) (NORMAL); RBC MORPHOLOGY (MULTIPLE) NORMAL APPEARANCE (NORMAL)
== END 2020-05-24 00:18 | disposition home or self-care (01) ==
LOC: ED 23:10
DX: G43.909 Migraine, unspecified, not intractable, without status migrainosus (principal)
CPT/HCPCS: 36415; 80048; 85025; 96361; 96374; 99283; 99284; J1200

== ENCOUNTER 2020-07-03 07:00 | Outpatient (CLI) | payer MEDICAID | END 2020-07-03 23:59 | disposition home or self-care (01) | LOC: LAB.R 07:00 | PROVIDERS: ATTEND Nurse Practitioner Family | DX: N39.0 Urinary tract infection, site not specified (principal) | CPT/HCPCS: 87086 ==

== ENCOUNTER 2020-07-20 07:00 | Outpatient (CLI) | payer OTHER, MEDICAID ==
[2020-07-20 19:30] LABS: BILIRUBIN,URINE NEGATIVE (NEGATIVE); GLUCOSE, URINE (UA) NEGATIVE (NEGATIVE); KETONES,URINE (UA) NEGATIVE (NEGATIVE); LEUKOCYTE ESTERASE, URINE SMALL (NEGATIVE); NITRITE,URINE NEGATIVE (NEGATIVE); OCCULT BLOOD,URINE TRACE-INTA (NEGATIVE); PH,URINE 5.5 PH (5.0-7.5); PROTEIN,URINE NEGATIVE (NEGATIVE); UROBILINOGEN,URINE 0.2 (NORMAL) E.U./dL (NORMAL)
[2020-07-20 19:33] LABS: CLARITY,URINE HAZY (CLEAR)
[2020-07-20 19:53] LABS: BACTERIA,URINE Moderate /HPF (None Seen); RBC,URINE 0-5 /HPF (0-5); SQUAMOUS EPITHELIAL CELL,UR FEW Squamous (<= Few)
== END 2020-07-20 23:59 | disposition home or self-care (01) ==
LOC: LAB.R 07:00
PROVIDERS: ATTEND Physician Assistant
DX: R31.9 Hematuria, unspecified (principal)
CPT/HCPCS: 81001; 87086

== ENCOUNTER 2020-09-25 08:00 | Outpatient (CLI) | payer OTHER, MEDICAID ==
[2020-09-25 17:48] LABS: BASOPHILS # (AUTO) 0.1 10^3/uL (0.0-0.1); BASOPHILS % (AUTO) 0.6 %; EOSINOPHILS # (AUTO) 0.2 10^3/uL (0.0-0.7); EOSINOPHILS % (AUTO) 1.8 %; HGB - HEMOGLOBIN 12.7 g/dL (12.0-16.0); LYMPHOCYTES # (AUTO) 3.6 10^3/uL (1.5-3.5); LYMPHOCYTES % (AUTO) 36.6 %; MEAN CORPUSCULAR HEMOGLOBIN 28.2 pg (27.0-31.0); MEAN CORPUSCULAR HGB CONC 31.6 g/dL (32.0-36.0); MEAN CORPUSCULAR VOLUME 89.1 fL (81.0-99.0); MEAN PLATELET VOLUME 9.8 fL (7.9-10.8); MONOCYTES # (AUTO) 0.5 10^3/uL (0.0-1.0); MONOCYTES % (AUTO) 5.5 %; NEUTROPHILS # (AUTO) 5.4 10^3/uL (1.5-6.6); NEUTROPHILS % (AUTO) 55.2 %; PLT - PLATELET COUNT 431 10^3/uL (130-450); RED BLOOD COUNT 4.51 10^6/uL (4.20-5.40); RED CELL DISTRIBUTION WIDTH 13.3 % (12.0-15.0); WHITE BLOOD COUNT 9.7 x10^3/uL (4.8-10.8)
[2020-09-25 18:15] LABS: ALBUMIN 3.9 g/dL (3.2-5.5); BILIRUBIN,TOTAL 0.7 mg/dL (0.2-1.0); CALCIUM 9.5 mg/dL (8.5-10.3); CREATININE 0.5 mg/dL (0.4-1.0); CRP - C-REACTIVE PROTEIN 1.1 mg/dL (0-1.0); TOTAL PROTEIN 7.9 g/dL (6.7-8.2); URIC ACID 7.7 mg/dL (2.6-7.2)
== END 2020-09-25 23:59 | disposition home or self-care (01) ==
LOC: LAB.WCP 08:00
PROVIDERS: ATTEND Physician Assistant
DX: M25.50 Pain in unspecified joint (principal)
CPT/HCPCS: 36415; 80053; 84550; 85025; 85651; 86038; 86140; 86200

== ENCOUNTER 2020-09-26 07:18 | Outpatient (CLI) | payer OTHER, MEDICAID ==
--- NOTE | 2020-09-26 12:54 | XRAY Report ---
PROCEDURE: Hand 2 View BILAT INDICATIONS: JOINT PAIN HANDS TECHNIQUE: 2 views of the bilateral hand(s) acquired. COMPARISON: None FINDINGS: Bones: No fractures or dislocations. No suspicious bony lesions. Soft tissues: No suspicious soft tissue calcifications. IMPRESSION: No degenerative or erosive arthritis found. No trauma seen. Reviewed by: Viet Eden MD on 09/26/2020 12:53 PM [facility] Approved by: Viet Eden MD on 09/26/2020 12:53 PM [facility] Station ID: [id number]
== END 2020-09-26 07:19 | disposition home or self-care (01) ==
LOC: DI.WCP 07:18
PROVIDERS: ATTEND Physician Assistant
DX: M79.643 Pain in unspecified hand (principal)

== ENCOUNTER 2020-10-03 13:26 | Outpatient (CLI) | payer OTHER, MEDICAID ==
[2020-10-03] MEDS ORDERED: GADOBUTROL 15 MMOL/15 ML VIAL ONE (13:55)
[2020-10-03] MEDS: GADOBUTROL 15 MMOL/15 ML VIAL IVP ONE (14:23)
--- NOTE | 2020-10-03 14:44 | MRI Report ---
PROCEDURE: Brain W/WO INDICATIONS: NUMBNESS, TINGLING L ARMS AND LEG, VERTIGO CONTRAST: IV CONTRAST: Gadavist ml: 13 TECHNIQUE: Noncontrast axial T1 spin echo, axial T2 fast spin echo, sagittal and axial FLAIR, coronal T2 fast sp in echo, axial gradient echo, axial diffusion and ADC through the brain. After the administration of contrast, axial and coronal T1 spin echo with fat saturation through the brain. COMPARISON: CT head 05/22/2018, CT angioma head 06/17/2018 FINDINGS: Image quality: Excellent. CSF spaces: Basal cisterns are patent. No extra-axial fluid collections. Ventricles are normal in size and shape. Brain: No midline shift. No intracranial bleeds or masses. No abnormal intracranial enhancement. There is cerebral volume loss for age. There is periventricular white matter chronic small vessel is chemic change. The brainstem appears normal. Diffusion-weighted images demonstrate no acute ischemi c insults. No chronic ischemic insults. Previously noted outpouching at the origin of the right post erior communicating artery is again noted without appreciable interval change. Skull and face: Calvarial marrow is normal in signal. Orbits appear normal. Sinuses: Sinuses and mastoids appear clear. IMPRESSION: 1. No acute intracranial process. Previously noted outpouching at the origin of the right posterior communicating artery is again noted without appreciable change. Reviewed by: Yanira Hassan MD on 10/03/2020 1:[address] [facility] Approved by: Yanira Hassan MD on 10/03/2020 1:[address] [facility] Station ID: [id number]
== END 2020-10-03 13:27 | disposition home or self-care (01) ==
LOC: DI 13:26
PROVIDERS: ATTEND Physician Assistant
DX: R20.2 Paresthesia of skin (principal); R42 Dizziness and giddiness
CPT/HCPCS: 70553; A9585

== ENCOUNTER 2020-10-17 18:31 | Outpatient (CLI) | payer OTHER, MEDICAID ==
--- NOTE | 2020-10-18 14:09 | Ultrasound Report ---
PROCEDURE: Pelvic w/Transvaginal INDICATIONS: CHRONIC PELVIC PAIN TECHNIQUE: Real-time scanning was performed of the pelvic organs, with image documentation. Additional endovagi nal scanning was necessary due to incomplete visualization of the adnexal and endometrial structures by transabdominal scanning. COMPARISON: None. FINDINGS: Transabdominal scanning: Limited scanning through the kidneys shows no hydronephrosis. No pathologi c free abdominal or pelvic fluid. Endovaginal scanning: Uterus: Uterus is normal in size at 6.5 x 3.8 x 4.5 cm. The endometrium measures 6 mm in combined t hickness. An intrauterine device is present which extends into the lower uterine segment. It is noted that the right arm of the IUD appears somewhat intubated in the myometrium. However, no clear visualization of perforation is identified. Ovaries: Right ovary measures 2.9 x 2.6 x 1.5 cm, volume 5.8 cc. Prominent follicle is noted measuri ng 11 mm. Left ovary measures 2.8 x 1.8 x 1.8 cm, by 4.9 cc. IMPRESSION: 1. IUD is noted partially within the lower uterine segment as described above. Reviewed by: Yanira Hassan MD on 10/18/2020 2:07 PM PST Approved by: Yanira Hassan MD on 10/18/2020 2:07 PM PST Station ID: [id number]
== END 2020-10-17 18:32 | disposition home or self-care (01) ==
LOC: DI 18:31
PROVIDERS: ATTEND Physician Assistant
DX: R10.2 Pelvic and perineal pain (principal); G89.29 Other chronic pain; Z97.5 Presence of (intrauterine) contraceptive device

== ENCOUNTER 2020-12-26 13:05 | Emergency (ER) | payer OTHER, MEDICAID ==
--- NOTE | 2020-12-26 13:36 | XRAY Report ---
PROCEDURE: Chest 1 View X-Ray INDICATIONS: Chest Pain TECHNIQUE: One view of the chest was acquired. COMPARISON: None FINDINGS: Surgical changes and devices: None. Lungs and pleura: No pleural effusions or pneumothorax. Lungs are clear. Mediastinum: Mediastinal contours appear normal. Heart size is normal. Bones and chest wall: No suspicious bony lesions. Overlying soft tissues appear unremarkable. IMPRESSION: No acute process. Reviewed by: Shaye Agarwal MD on 12/26/2020 1:34 PM [facility] Approved by: Shaye Agarwal MD on 12/26/2020 1:34 PM [facility] Station ID: [id number]
[2020-12-26 13:39] LABS: BASOPHILS # (AUTO) 0.1 10^3/uL (0.0-0.1); BASOPHILS % (AUTO) 0.4 %; HGB - HEMOGLOBIN 13.5 g/dL (12.0-16.0); LYMPHOCYTES # (AUTO) 3.9 10^3/uL (1.5-3.5); LYMPHOCYTES % (AUTO) 17.1 %; MEAN CORPUSCULAR HEMOGLOBIN 29.3 pg (27.0-31.0); MEAN CORPUSCULAR HGB CONC 33.3 g/dL (32.0-36.0); MEAN CORPUSCULAR VOLUME 87.9 fL (81.0-99.0); MEAN PLATELET VOLUME 9.3 fL (7.9-10.8); MONOCYTES # (AUTO) 1.2 10^3/uL (0.0-1.0); MONOCYTES % (AUTO) 5.1 %; NEUTROPHILS # (AUTO) 17.4 10^3/uL (1.5-6.6); NEUTROPHILS % (AUTO) 76.9 %; PLT - PLATELET COUNT 449 10^3/uL (130-450); RED BLOOD COUNT 4.61 10^6/uL (4.20-5.40); RED CELL DISTRIBUTION WIDTH 14.5 % (12.0-15.0); WHITE BLOOD COUNT 22.7 x10^3/uL (4.8-10.8)
[2020-12-26] MEDS ORDERED: BUTALB/ACETAM/CAFF 50/325/40MG TABLET PO STA (13:47)
--- NOTE | 2020-12-26 13:47 | ED Physician Documentation ---
PD HPI CHEST PAIN - Stated complaint Stated Complaint: CHEST PX,NAUSEA,DIZZY - Chief complaint Chief Complaint: Cardiac - History obtained from History obtained from: Patient - History of Present Illness Timing - onset: Today Timing - duration: Hours (6-8) Timing - details: Gradual onset Pain level max: 6 Pain level now: 4 Location: Left chest Radiation: No: Jaw, Neck, Back, Abdominal, Left upper extremity, Right upper extremity Improved by: Rest Worsened by: Movement, Palpation Associated symptoms: No: Shortness of air, Diaphoresis, Nausea, Vomiting, Feeling faint / dizzy, General Weakness, Palpitations, Cough Similar symptoms before: Has not had sx before - Additional information Additional information: 20-year-old female presents to the emergency department left-sided chest pain. Described as sharp and tight. Constant for the past 8 hours. States it started after she awoke from sleep today. Worse with movement, better with rest. Does not recall any injury. No shortness of breath. No fevers. No chills. No cough. No recent illness. No recent travel. No recent surgery. Also has chronic migraine headaches and has had a headache for the past week. This is not unusual for her. No different than her normal headache. Mostly frontal. She states she had tried Imitrex in the past but that did not help. She was treated with Toradol yesterday. Has been taking Tylenol for her headache at home. 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 : None HEENT: None Psych: Depression, Anxiety, Bipolar disorder Musculoskeletal: None Derm: None - Past Surgical History Past Surgical History: Yes HEENT: Tonsil/Adenoidectomy - Present Medications Home Medications: Ambulatory Orders Medication Instructions Recorded Confirmed Fluoxetine HCl [Prozac] 20 mg PO DAILY 06/10/20 12/26/20 Lisdexamfetamine Dimesylate 30 mg PO DAILY 06/10/20 12/26/20 [Vyvanse] Amitriptyline [Elavil] 10 mg PO HS 12/26/20 12/26/20 Carisoprodol [Soma] 350 mg PO Q8H PRN #10 12/26/20 Divalproex Sodium [Depakote ER] 1,000 mg PO DAILY 12/26/20 12/26/20 Propranolol [Inderal] 10 mg PO BID 12/26/20 12/26/20 - Allergies Allergies/Adverse Reactions: Allergies Allergy/AdvReac Type Severity Reaction Status Date / Time Penicillins Allergy Severe Hives Verified 12/26/20 13:07 amoxicillin Allergy Unknown Verified 12/26/20 13:07 cephalexin [From Keflex] AdvReac Dizziness Verified 12/26/20 13:07 - Social History Does the pt smoke?: No Smoking Status: Never smoker Does the pt drink ETOH?: Yes Does the pt have substance abuse?: No - Immunizations Immunizations are current?: Yes - POLST Patient has POLST: No PD ED PE NORMAL - Vitals Vital signs reviewed: Yes - General General: Alert and oriented X 3, No acute distress - HEENT HEENT: Moist mucous membranes, Pharynx benign - Neck Neck: Supple, no meningeal sign - Cardiac Cardiac: RRR, Strong equal pulses, Other (Tenderness to palpation over the left anterior chest wall. Reproduces her pain.) - Respiratory Respiratory: No respiratory distress, Clear bilaterally - Abdomen Abdomen: Soft, Non tender, Non distended - Derm Derm: Warm and dry - Extremities Extremities: No edema, No calf tenderness / cord - Neuro Neuro: Alert and oriented X 3 - Psych Psych: Normal mood, Normal affect Results - Vitals Vitals: Vital Signs - 24 hr 12/26/20 12/26/20 13:07 15:04 Temperature 36.5 C Heart Rate 112 H 98 Respiratory 18 16 Rate Blood Pressure 164/91 H 148/79 H O2 Saturation 97 98 Oxygen O2 Source Room air - EKG (time done) 1311 Rate: Rate (enter#) (105) Rhythm: Sinus tachycardia [place]: Normal Intervals: Normal KS QRS: Normal, LVH Ischemia: Normal ST segments - Labs Labs: Laboratory Tests 12/26/20 12/26/20 12/26/20 13:34 13:34 13:34 WBC 22.7 H RBC 4.61 Hgb 13.5 Hct 40.5 MCV 87.9 MCH 29.3 MCHC 33.3 RDW 14.5 Plt Count 449 MPV 9.3 Neut # (Auto) 17.4 H Lymph # (Auto) 3.9 H [place] # (Auto) 1.2 H Eos # (Auto) 0.0 Baso # (Auto) 0.1 Absolute Nucleated RBC 0.00 Nucleated RBC % 0.0 Manual Slide Review Indicated RBC Morph Micro Appear 2+ ANISOCYTOSIS D-Dimer Sodium 131 L Potassium 4.0 Chloride 97 L Carbon Dioxide 20 L Anion Gap 14.0 H BUN 13 Creatinine 0.7 Estimated GFR (MDRD) 105 Glucose 107 H Calcium 9.7 Total Bilirubin 1.2 H AST 40 ALT 51 Alkaline Phosphatase 48 Troponin I High Sens 4.4 Total Protein 8.1 Albumin 4.1 Globulin 4.0 Albumin/Globulin Ratio 1.0 Lipase 25 12/26/20 13:58 WBC RBC Hgb Hct MCV MCH MCHC RDW Plt Count MPV Neut # (Auto) Lymph # (Auto) [place] # (Auto) Eos # (Auto) Baso # (Auto) Absolute Nucleated RBC Nucleated RBC % Manual Slide Review RBC Morph Micro Appear D-Dimer < 200.0 L Sodium Potassium Chloride Carbon Dioxide Anion Gap BUN Creatinine Estimated GFR (MDRD) Glucose Calcium Total Bilirubin AST ALT Alkaline Phosphatase Troponin I High Sens Total Protein Albumin Globulin Albumin/Globulin Ratio Lipase - Rads (name of study) cxr Radiology: Prelim report reviewed, EMP read contemporaneously, See rad report (normal) PD MEDICAL DECISION MAKING - ED course Complexity details: reviewed results, re-evaluated patient, considered differential (No ST elevation HI, no aortic dissection, no PE, no tension pneumothorax, no aortic aneurysm), d/w patient ED course: Unclear etiology of her chest pain. Her headache is chronic and usual in nature for her. No subarachnoid hemorrhage, tumor, encephalitis, meningitis. She states that in the past Soma has helped with her headache, will likely help with the muscular chest wall pain as well. No evidence of acute coronary syndrome, PE, aortic dissection, pneumothorax. Patient is very well-appearing, nontoxic. Afebrile. Patient counseled regarding signs and symptoms for which I believe and urgent re-evaluation would be necessary. Patient with good understanding of and agreement to plan and is comfortable going home at this time This document was made in part using voice recognition software. While efforts are made to proofread this document, sound alike and grammatical errors may occur. Departure - Departure Disposition: 01 Home, Self Care Clinical Impression: Headache Qualifiers: Headache type: unspecified Headache chronicity pattern: acute headache Intractability: not intractable Qualified Code(s): R51.9 - Headache, unspecified Chest pain Qualifiers: Chest pain type: unspecified Qualified Code(s): R07.9 - Chest pain, unspecified Condition: Good Instructions: ED Chest Pain Atypical Unkn Cause, ED Headache Migraine Follow-Up: Yessi Ryan PA [Primary Care Provider] - Within 1 week Prescriptions: Carisoprodol [Soma] 350 mg PO Q8H PRN #10 PRN Reason: muscle spasm Comments: Your testing does not show any acute abnormalities today. Follow-up with your doctor for further care. You have stated that Soma has helped in the past with your headaches, this may help your chest wall pain as well. Return if you worsen. Do not drive or operate heavy machinery while taking the soma Discharge Date/Time: 12/26/20 15:06
[2020-12-26 13:53] LABS: ALBUMIN 4.1 g/dL (3.2-5.5); BILIRUBIN,TOTAL 1.2 mg/dL (0.2-1.0); CALCIUM 9.7 mg/dL (8.5-10.3); CREATININE 0.7 mg/dL (0.4-1.0); TOTAL PROTEIN 8.1 g/dL (6.7-8.2)
[2020-12-26 14:06] LABS: RBC MORPHOLOGY (MULTIPLE) 2+ ANISOCYTOSIS (NORMAL)
[2020-12-26 15:06] VITALS: BP 148/79
== END 2020-12-26 15:06 | disposition home or self-care (01) ==
LOC: ED 13:05
DX: R07.89 Other chest pain (principal); R51.9 Headache, unspecified; R00.0 Tachycardia, unspecified
CPT/HCPCS: 36415; 71045; 80053; 83690; 84484; 85025; 85379; 93005; 99284; A9270

== ENCOUNTER 2021-01-04 11:08 | Outpatient (CLI) | payer OTHER, MEDICAID ==
[2021-01-04 11:56] LABS: THYROID STIMULATING HORMONE 1.83 uIU/mL (0.34-5.60)
== END 2021-01-04 11:09 | disposition home or self-care (01) ==
LOC: LAB 11:08
PROVIDERS: ATTEND Family Medicine
DX: K21.9 Gastro-esophageal reflux disease without esophagitis (principal); R63.5 Abnormal weight gain
CPT/HCPCS: 36415; 84443; 87338

== ENCOUNTER 2021-01-05 08:00 | Outpatient (CLI) | payer OTHER, MEDICAID ==
[2021-01-05 17:07] LABS: H. PYLORIS ANTIGEN STL POSITIVE (Negative)
== END 2021-01-05 23:59 | disposition home or self-care (01) ==
LOC: LAB.R 08:00
PROVIDERS: ATTEND Family Medicine
DX: K21.9 Gastro-esophageal reflux disease without esophagitis (principal)
CPT/HCPCS: 87338

== ENCOUNTER 2021-01-15 07:00 | Outpatient (CLI) | payer OTHER, MEDICAID ==
--- NOTE | 2021-01-15 13:10 | XRAY Report ---
PROCEDURE: Lumbar Spine 2 View INDICATIONS: LUMBAR RADICULOPATHY TECHNIQUE: 2 views of the lumbar spine were acquired. COMPARISON: CT abdomen and pelvis dated 01/15/2021 FINDINGS: Bones: 5 [id number] vertebrae are present. There is normal bony alignment. No acute vertebral body compression fractures. No suspicious bony lesions. There is mild lower lumbar spondylosis wit h disc space loss and mild degenerative endplate changes seen at L5-S1. Soft tissues: Overlying bowel gas pattern is normal. No suspicious soft tissue calcifications. IMPRESSION: Mild lower lumbar spondylosis at L5-S1. No acute radiographic abnormalities identified in the lumbar spine. Reviewed by: Sly Cummings MD on 01/15/2021 1:09 PM PST Approved by: Sly Cummings MD on 01/15/2021 1:09 PM PST Station ID: [id number]
== END 2021-01-15 23:59 | disposition home or self-care (01) ==
LOC: DI.N 07:00
PROVIDERS: ATTEND Family Medicine
DX: M47.27 Other spondylosis with radiculopathy, lumbosacral region (principal)

== ENCOUNTER 2021-02-02 17:54 | Outpatient (CLI) | payer OTHER, MEDICAID | END 2021-02-02 17:55 | disposition critical access hospital (66) | LOC: EMS 17:54 | PROVIDERS: ATTEND Emergency Medicine | DX: M54.5 Low back pain (principal) | CPT/HCPCS: A0425; A0427 ==

== ENCOUNTER 2021-02-02 18:18 | Emergency (ER) | payer OTHER, MEDICAID ==
[2021-02-02] MEDS ORDERED: diazePAM INJ 5 MG/ML SYRINGE IVP STA ×2 (18:38→19:33)
[2021-02-02] MEDS ORDERED: HYDROmorphone 1 MG/ML CARPUJECT IVP STA ×3 (18:38→22:36)
--- NOTE | 2021-02-02 18:40 | ED Physician Documentation ---
History of Present Illness - Stated complaint Stated Complaint: LBP - Chief complaint Chief Complaint: Back Pain - Additonal information Additional information: 21-year-old female presents emergency department for evaluation of acute left low back pain that she noted this afternoon when standing up from her computer. She felt it tightening and pulling in her low back that prevented her first from standing upright. She does have a history of recurrent low back pain but is usually able to manage it by doing gentle stretching. She reports that stretching did not help at home today. No saddle anesthesia or loss of bowel or bladder function. No fevers. Patient is very uncomfortable and will not allow us to sit her upright any attempt to do so results in crying and screaming. Review of Systems Constitutional: denies: Fever, Chills Eyes: reports: Reviewed and negative Ears: reports: Reviewed and negative Nose: reports: Reviewed and negative Throat: reports: Reviewed and negative Cardiac: reports: Reviewed and negative Respiratory: reports: Reviewed and negative GI: denies: Abdominal Pain, Nausea, Vomiting : denies: Dysuria Skin: reports: Reviewed and negative Musculoskeletal: reports: Back pain Neurologic: denies: Generalized weakness, Focal weakness Psychiatric: denies: Depressed, Suicidal PD PAST MEDICAL HISTORY - Past Medical History Past Medical History: Yes Cardiovascular: None Respiratory: Pneumonia Neuro: Migraines Endocrine/Autoimmune: None GI: None, Other HERBOLOGIST: None : None HEENT: None Psych: Depression, Anxiety, Bipolar disorder Musculoskeletal: None Derm: None - Past Surgical History Past Surgical History: Yes HEENT: Tonsil/Adenoidectomy - Present Medications Home Medications: Ambulatory Orders Medication Instructions Recorded Confirmed Fluoxetine HCl [Prozac] 20 mg PO DAILY 06/10/20 02/02/21 Divalproex Sodium [Depakote ER] 1,000 mg PO DAILY 12/26/20 12/26/20 Baclofen 5 mg PO TID PRN #20 tablet 02/02/21 HYDROcodone/ACET 10/325 [Lacona 10 1 each PO TID PRN #10 tablet 02/02/21 mg/325 mg] cloNIDine [Catapres] 0.1 mg PO DAILY 02/02/21 02/02/21 predniSONE [Deltasone] 40 mg PO DAILY 4 Days #8 tablet 02/02/21 - Allergies Allergies/Adverse Reactions: Allergies Allergy/AdvReac Type Severity Reaction Status Date / Time Penicillins Allergy Severe Hives Verified 02/02/21 18:30 amoxicillin Allergy Unknown Verified 02/02/21 18:30 cephalexin [From Keflex] AdvReac Dizziness Verified 02/02/21 18:30 - Social History Does the pt smoke?: No Smoking Status: Never smoker Does the pt drink ETOH?: Yes Does the pt have substance abuse?: Yes Substance Use and Type: CBD oil / Products - Immunizations Immunizations are current?: Yes - POLST Patient has POLST: No PD ED PE EXPANDED - General General: Alert, In Pain - Cardiac Cardiac: Regular Rate, Radial strong equal, Pedal strong equal, Cap refill < 2 sec. No: Murmur Present - Respiratory Respiratory: Clear to ausultation estefanía. No: Distress, Labored - Abdomen Abdomen: Normal Bowel sounds. No: Tender to palpation, Guarding - Back Back: Soft tissue tenderness (Left lower paraspinous tenderness to palpation. Exam is somewhat limited by body habitus.), Other (normal sensation BLW; able to raise and keep both legs elevated, motor strength 5/5 BLE). No: Vertebral tenderness, CVA TTP right, CVA TTP left - Derm Derm: Normal color, Warm and dry. No: Rash - Extremities Extremities: Normal. No: Deformity, Tenderness - Neuro Neuro: Alert and Oriented X 3, CNII-XII intact - GCS Eye Opening: Spontaneous Motor: Obeys Commands Verbal: Oriented Total: 15 Results - Vitals Vitals: Vital Signs - 24 hr 02/02/21 02/02/21 02/02/21 18:22 18:36 19:01 Temperature 37.2 C Heart Rate 120 H 127 H 110 H Respiratory 16 18 16 Rate Blood Pressure 148/80 H 160/109 H 158/87 H O2 Saturation 96 97 97 02/02/21 02/02/21 19:40 21:00 Temperature 98.1 C H Heart Rate 124 H 145 H Respiratory 18 20 Rate Blood Pressure 154/82 H 163/92 H O2 Saturation 98 97 Oxygen O2 Source Room air - EKG (time done) 2111 Rate: Rate (enter#) (134) Rhythm: Sinus tachycardia [place]: Normal Intervals: Normal PA, Prolonged QT QRS: Normal Ischemia: Non specific changes (t waves inferior leads) Compare to prior EKG: Unchanged from prior EKG Computer interpretation: Agree with computer - Labs Labs: Laboratory Tests 02/02/21 02/02/21 02/02/21 21:23 21:45 21:45 WBC RBC Hgb Hct MCV MCH MCHC RDW Plt Count MPV Neut # (Auto) Lymph # (Auto) Walsh # (Auto) Eos # (Auto) Baso # (Auto) Absolute Nucleated RBC Nucleated RBC % Sodium 136 Potassium 3.8 Chloride 104 Carbon Dioxide 20 L Anion Gap 12.0 BUN 10 Creatinine 0.6 Estimated GFR (MDRD) 124 Glucose 125 H Calcium 8.5 Total Bilirubin 0.7 AST 53 H ALT 45 Alkaline Phosphatase 43 Troponin I High Sens 6.2 Total Protein 7.1 Albumin 3.6 Globulin 3.5 Albumin/Globulin Ratio 1.0 Lipase 25 TSH 3.62 Urine Color Urine Clarity Urine pH Ur Specific [place] Urine Protein Urine Glucose (UA) Urine Ketones Urine Occult Blood Urine Nitrite Urine Bilirubin Urine Urobilinogen Ur Leukocyte Esterase Urine RBC Urine WBC Ur Squamous Epith Cells Amorphous Sediment Urine Bacteria Urine Mucus Ur Microscopic Review Urine Culture Comments 02/02/21 02/02/21 21:45 21:55 WBC 14.4 H RBC 4.15 L Hgb 11.8 L Hct 37.3 MCV 89.9 MCH 28.4 MCHC 31.6 L RDW 14.1 Plt Count 344 MPV 9.3 Neut # (Auto) 11.3 H Lymph # (Auto) 2.0 Walsh # (Auto) 0.9 Eos # (Auto) 0.0 Baso # (Auto) 0.1 Absolute Nucleated RBC 0.00 Nucleated RBC % 0.0 Sodium Potassium Chloride Carbon Dioxide Anion Gap BUN Creatinine Estimated GFR (MDRD) Glucose Calcium Total Bilirubin AST ALT Alkaline Phosphatase Troponin I High Sens Total Protein Albumin Globulin Albumin/Globulin Ratio Lipase TSH Urine Color YELLOW Urine Clarity HAZY Urine pH 6.0 Ur Specific [place] >=1.030 H Urine Protein NEGATIVE Urine Glucose (UA) NEGATIVE Urine Ketones 15 H Urine Occult Blood NEGATIVE Urine Nitrite NEGATIVE Urine Bilirubin NEGATIVE Urine Urobilinogen 0.2 (NORMAL) Ur Leukocyte Esterase NEGATIVE Urine RBC 0-5 Urine WBC 11-25 H Ur Squamous Epith Cells MANY Squamous H Amorphous Sediment Few Urine Bacteria Few Urine Mucus Few Strands Ur Microscopic Review INDICATED Urine Culture Comments NOT INDICATED - Rads (name of study) CXR Radiology: Final report received (No acute process), EMP read indepedently (No acute cardiopulmonary process) PD MEDICAL DECISION MAKING - ED course Complexity details: reviewed results, re-evaluated patient, considered differential, d/w patient ED course: 21-year-old female presents to the emergency department for evaluation of acute left low back pain that got suddenly worse when she stood up after sitting at her computer for an extended period of time. She describes a tightening and spasm in her back that prevented her from standing fully upright. She had no falls trauma fevers or back pain red flags including saddle anesthesia. Initially she was given Dilaudid and 2.5 mg of Valium with mild relief of pain. This was then repeated with a second dose of Dilaudid and 5 mg of Valium with marked improvement in her symptoms to the extent that she was able to sit up and walk with no assistance. I did give this patient 60 mg of prednisone as I suspect that she has some disc herniation as well as a likely sciatica contributing to her symptoms. 2100: At the time as I was getting ready to discharge the patient home nursing staff alerted to me that at rest she had a heart rate of 150. Patient denied chest pain or shortness of breath. However given the tachycardia and this presentation I will proceed to do screening labs chest x-ray and EKG. In point, patient denies chest pain or shortness of air and feels that her symptoms are markedly improved. 2245: EKG showed sinus tachycardia rate of 134 without ischemic findings. High-sensitivity troponin negative. Chest x-ray without any acute focal opacities or findings. Screening labs reveal mild leukocytosis with white count of 14,000. I suspect that this is most likely a stress marginalization as opposed to true infection. She has had no fevers urine is contaminated and dirty. Very low suspicion for a UA given lack of associated symptoms. Screening electrolytes are also fairly unrevealing. She does not appear dehydrated and her TSH is normal. I have given her 2 L of crystalloid and her heart rate does appear to be improving sometimes at rest now in the 1 teens and low 120s. Again patient denies any chest pain sensation of palpitations or shortness of breath. I have very little suspicion for a pulmonary embolus by Wells criteria she is low risk. I did offer patient the option for a CT scan but she has declined it at this time. I am also unable to elicit any abdominal tenderness or CVA tenderness at this time. I do suspect that the cause of her pain is most likely a pain response. She feels comfortable with discharge home. I will write for an additional 4 days of steroids as well as baclofen as a muscle relaxer and a very limited amount of hydrocodone for pain control. Patient is advised to follow-up closely with a primary doctor for follow-up of this back pain consideration of MRI in the future with physical therapy. Patient is to return to the emergency department for fevers worsening pain any fainting episodes or if her heart rate fails to improve with an improvement in pain Departure - Departure Disposition: 01 Home, Self Care Clinical Impression: Tachycardia Low back pain Qualifiers: Chronicity: acute Back pain laterality: left Sciatica presence: without sciatica Qualified Code(s): M54.5 - Low back pain Condition: Stable Record reviewed to determine appropriate education?: Yes Instructions: ED Back Spasm No Trauma Ch Follow-Up: Alonso Verduzco DO [Primary Care Provider] - Prescriptions: Baclofen 5 mg PO TID PRN #20 tablet PRN Reason: Spasms predniSONE [Deltasone] 40 mg PO DAILY 4 Days #8 tablet HYDROcodone/ACET 10/325 [Lacona 10 mg/325 mg] 1 each PO TID PRN #10 tablet PRN Reason: Pain Comments: Afshan ramey were seen in the emergency department today for low back pain. On pr esentation it appeared as though you had significant amount of spasm in your low back. Your pain improved after a few doses of Dilaudid and Valium. However you had an elevated heart rate throughout your emergency department stay. As we discussed the cause of your elevated heart rate is not clear though I do suspect it is related to pain. In order to manage her pain at home I have written a prescription for a very small amount of hydrocodone to be used sparingly. You were given a dose of prednisone here in the emergency department which should help manage the back pain and improve the spasm over the next 24 to 48 hours. Please fill the prescription for the remaining doses of prednisone and take as directed. I have also written a prescription for baclofen to be used as a muscle relaxer. Please use the baclofen and hydrocodone very sparingly and with caution. They may impair your ability to drive or make you sleepy. Please do not take a medication like ibuprofen naproxen or Aleve while taking the prednisone. It can cause significant stomach upset. Once you are done with the prednisone however you may begin to take the ibuprofen It is important that you discuss this ED visit with your primary care doctor. You would likely benefit from referral to physical therapy or consideration of an MRI to fully evaluate the cause and source of your low back pain. Please monitor your heart rate at home over the next 2 to 3 days. If at any point your heart rate is worsening, you have fainting episodes develop chest pain or shortness of breath please then return immediately to the emergency department for a second evaluation.
[2021-02-02] MEDS ORDERED: predniSONE 20 MG TABLET PO STA (20:01)
[2021-02-02] MEDS ORDERED: SODIUM CHLORIDE 0.9% 1,000 ML IV STA ×2 (21:05→22:19)
[2021-02-02 21:48] LABS: BASOPHILS # (AUTO) 0.1 10^3/uL (0.0-0.1); BASOPHILS % (AUTO) 0.3 %; EOSINOPHILS % (AUTO) 0.1 %; HCT - HEMATOCRIT 37.3 % (37.0-47.0); HGB - HEMOGLOBIN 11.8 g/dL (12.0-16.0); LYMPHOCYTES % (AUTO) 14.2 %; MEAN CORPUSCULAR HEMOGLOBIN 28.4 pg (27.0-31.0); MEAN CORPUSCULAR HGB CONC 31.6 g/dL (32.0-36.0); MEAN CORPUSCULAR VOLUME 89.9 fL (81.0-99.0); MEAN PLATELET VOLUME 9.3 fL (7.9-10.8); MONOCYTES # (AUTO) 0.9 10^3/uL (0.0-1.0); MONOCYTES % (AUTO) 6.1 %; NEUTROPHILS # (AUTO) 11.3 10^3/uL (1.5-6.6); NEUTROPHILS % (AUTO) 78.9 %; PLT - PLATELET COUNT 344 10^3/uL (130-450); RED BLOOD COUNT 4.15 10^6/uL (4.20-5.40); RED CELL DISTRIBUTION WIDTH 14.1 % (12.0-15.0); WHITE BLOOD COUNT 14.4 x10^3/uL (4.8-10.8)
--- NOTE | 2021-02-02 22:00 | XRAY Report ---
PROCEDURE: Chest 1 View X-Ray INDICATIONS: chest pain TECHNIQUE: One view of the chest was acquired. COMPARISON: Chest x-ray 12/26/2020 FINDINGS: Surgical changes and devices: None. Lungs and pleura: No pleural effusions or pneumothorax. Lungs are clear. Mediastinum: Mediastinal contours appear normal. Heart size is normal. Bones and chest wall: No suspicious bony lesions. Overlying soft tissues appear unremarkable. IMPRESSION: No acute pulmonary process. Reviewed by: Yanira Hassan MD on 02/02/2021 9:58 PM PDT Approved by: Yanira Hassan MD on 02/02/2021 9:58 PM PDT Station ID: [id number]
[2021-02-02 22:08] LABS: BILIRUBIN,URINE NEGATIVE (NEGATIVE); GLUCOSE, URINE (UA) NEGATIVE (NEGATIVE); KETONES,URINE (UA) 15 mg/dL (NEGATIVE); LEUKOCYTE ESTERASE, URINE NEGATIVE (NEGATIVE); NITRITE,URINE NEGATIVE (NEGATIVE); OCCULT BLOOD,URINE NEGATIVE (NEGATIVE); PROTEIN,URINE NEGATIVE (NEGATIVE); UROBILINOGEN,URINE 0.2 (NORMAL) E.U./dL (NORMAL)
[2021-02-02 22:08] LABS: ALBUMIN 3.6 g/dL (3.2-5.5); BILIRUBIN,TOTAL 0.7 mg/dL (0.2-1.0); CALCIUM 8.5 mg/dL (8.5-10.3); CREATININE 0.6 mg/dL (0.4-1.0); POTASSIUM 3.8 mmol/L (3.5-5.0); TOTAL PROTEIN 7.1 g/dL (6.7-8.2)
[2021-02-02 22:09] LABS: CLARITY,URINE HAZY (CLEAR)
[2021-02-02 22:18] LABS: AMORPHOUS SEDIMENT,UR Few /LPF; BACTERIA,URINE Few /HPF (None Seen); MUCUS,URINE Few Strands; RBC,URINE 0-5 /HPF (0-5); SQUAMOUS EPITHELIAL CELL,UR MANY Squamous (<= Few)
[2021-02-02 23:41] VITALS: BP 125/84
== END 2021-02-02 23:43 | disposition home or self-care (01) ==
LOC: ED 18:18
DX: M54.5 Low back pain (principal); R00.0 Tachycardia, unspecified
CPT/HCPCS: 36415; 71045; 80053; 81001; 83690; 84443; 84484; 85025; 93005; 96374; 96375; 96376; 99284; J1170; J7512; 81003; 87086

== ENCOUNTER 2021-02-13 08:00 | Outpatient (CLI) | payer OTHER, MEDICAID ==
[2021-02-13 18:41] LABS: HCG,QUALITATIVE BLOOD NEGATIVE
== END 2021-02-13 23:59 | disposition home or self-care (01) ==
LOC: LAB.WCP 08:00
PROVIDERS: ATTEND Family Medicine
DX: N92.6 Irregular menstruation, unspecified (principal)
CPT/HCPCS: 36415; 84146; 84403; 84703

== ENCOUNTER 2021-03-09 11:30 | Outpatient (CLI) | payer OTHER, MEDICAID ==
[2021-03-09 14:25] LABS: ESTIMATED AVERAGE GLUCOSE 111 mg/dL (70-100); HEMOGLOBIN A1c% 5.5 % (4.27-6.07)
== END 2021-03-09 23:59 | disposition home or self-care (01) ==
LOC: LAB.N 11:30
PROVIDERS: ATTEND Physician Assistant Medical
DX: E66.9 Obesity, unspecified (principal)
CPT/HCPCS: 36415; 83036

== ENCOUNTER 2021-04-15 09:05 | Outpatient (CLI) | payer OTHER, MEDICAID ==
[2021-04-15 09:56] LABS: % IRON SATURATION 8 % (20-50); IRON 49 ug/dL (28-170); TOTAL IRON BINDING CAPACITY 602 ug/dL (250-450); TRANSFERRIN 430 mg/dL (192-382); VALPROIC ACID (DEPAKOTE) 15.4 ug/mL
[2021-04-15 10:01] LABS: HCG,QUALITATIVE BLOOD NEGATIVE
[2021-04-15 10:12] LABS: FERRITIN 15.1 ng/mL (11.0-306.8)
== END 2021-04-15 09:06 | disposition home or self-care (01) ==
LOC: LAB 09:05
PROVIDERS: ATTEND Family Medicine
DX: F31.9 Bipolar disorder, unspecified (principal); D64.9 Anemia, unspecified; R53.83 Other fatigue
CPT/HCPCS: 36415; 80164; 82607; 82728; 83540; 84466; 84703

== ENCOUNTER 2021-04-23 09:32 | Outpatient (CLI) | payer OTHER, MEDICAID ==
[2021-04-23 10:04] LABS: ABNORMAL LYMPHS % (MANUAL) 0 %
[2021-04-23 12:18] LABS: BASOPHILS % (AUTO) 0.5 %; EOSINOPHILS % (AUTO) 1.7 %; HCT - HEMATOCRIT 40.1 % (37.0-47.0); HGB - HEMOGLOBIN 12.5 g/dL (12.0-16.0); LYMPHOCYTES % (AUTO) 33.3 %; MEAN CORPUSCULAR HEMOGLOBIN 27.2 pg (27.0-31.0); MEAN CORPUSCULAR HGB CONC 31.2 g/dL (32.0-36.0); MEAN CORPUSCULAR VOLUME 87.4 fL (81.0-99.0); MEAN PLATELET VOLUME 9.7 fL (7.9-10.8); MONOCYTES % (AUTO) 6.8 %; NEUTROPHILS % (AUTO) 57.6 %; PLT - PLATELET COUNT 436 10^3/uL (130-450); RED BLOOD COUNT 4.59 10^6/uL (4.20-5.40); RED CELL DISTRIBUTION WIDTH 14.6 % (12.0-15.0); WHITE BLOOD COUNT 8.7 x10^3/uL (4.8-10.8)
[2021-04-23 12:47] LABS: ALBUMIN 3.7 g/dL (3.2-5.5); ALBUMIN/GLOBULIN RATIO 0.9 (1.0-2.2); BILIRUBIN,TOTAL 0.7 mg/dL (0.2-1.0); CALCIUM 9.3 mg/dL (8.5-10.3); CREATININE 0.6 mg/dL (0.4-1.0); CRP - C-REACTIVE PROTEIN 1.1 mg/dL (0-1.0); POTASSIUM 4.2 mmol/L (3.5-5.0); TOTAL PROTEIN 7.6 g/dL (6.7-8.2)
[2021-04-23 13:05] LABS: BAND NEUTROPHILS % (MANUAL) 1 %; EOSINOPHILS # (MANUAL) 0.1 10^3/uL (0-0.7); LYMPHOCYTES % (MANUAL) 34 %; MONOCYTES # (MANUAL) 0.5 10^3/uL (0.0-1.0); PLATELET ESTIMATE, MANUAL NORMAL (130-450,000) (NORMAL); PLATELET MORPHOLOGY NORMAL APPEARANCE (NORMAL)
[2021-04-23 13:06] LABS: RBC MORPHOLOGY (MULTIPLE) NORMAL APP (NORMAL); WBC MORPHOLOGY (MULTIPLE) NORMAL APP (NORMAL)
[2021-04-23 13:11] LABS: NEUTROPHILS # (MANUAL) 5.1 10^3/uL (1.5-6.6)
[2021-04-23 13:13] LABS: DIFFERENTIAL COMMENT MANUAL DIFFERENTIAL
[2021-04-26 06:57] LABS: ANA SCREEN POSITIVE (NEGATIVE)
== END 2021-04-23 09:33 | disposition home or self-care (01) ==
LOC: LAB.N 09:32
PROVIDERS: ATTEND Family Medicine
DX: D72.829 Elevated white blood cell count, unspecified (principal); R79.89 Other specified abnormal findings of blood chemistry
CPT/HCPCS: 36415; 80053; 85025; 85651; 86038; 86140; 86225

== ENCOUNTER 2021-05-16 08:00 | Outpatient (CLI) | payer OTHER, MEDICAID ==
--- NOTE | 2021-05-16 08:45 | SLEEP CARE CONSULTATION ---
Information from patient questionnaire entered by Marilou Tran. I have reviewed and concur with the information entered by Marilou Tran. This document represents the service I personally performed and the decisions made by me, Nusrat Bernal ARNP. History of Present Illness Service Date and Time: 05/16/2021 0800 Reason for Visit: New patient Chief Complaint: reports: Unrefreshed sleep, Snoring, Excessive daytime sleepiness, Fatigue. denies: Observed pauses in breathing, Frequent awakenings at night Date of Onset: 3 years, intensified last 3 months Usual bedtime: 10:30 pm Time it takes to fall asleep: 30 minutes Snores at night: Yes Observed to quit breathing while asleep: No Sleeps alone due to snoring: No Number of times waking at night: 1 Reasons for waking at night: reports: Snoring (couple times, not recently; usually if she has a cold), Bathroom. denies: Choking, Gasping for air Toss, Turn, or Twitch while sleeping: Yes Recalls having dreams: Yes Usually gets out of bed at: 6:50 am Feels refreshed in the morning: No Morning headache: No (has hx of chronic migraines) Sleepy or fatigued during the day: Yes Ever fallen asleep while driving: No (doesn't normally drive, has intense dizziness) Takes day naps: Yes (2 daily for about 2 hours over last 3 months) Dreams during day naps: Yes Prior sleep studies: No Additional HPI information: I had the pleasure of seeing EMILEE MCLEOD today regarding the possibility of her having a sleep disorder. Her current complaints are excessive daytime sleepiness and fatigue. She has had chronic fatigue for 3 years that has worsened over the last 3 months. She spoke with PCP who referred her. She tried Vyvanse but this did not help. She takes 2 naps daily for about 2 hours to get through the day in the last 3 months. She snores and does not wake up refreshed in the morning. She denies pauses in breathing. - Parasomnia Symptoms Ever been unable to move upon waking from sleep: No Walks in sleep: No Talks in sleep: Yes Ever acted out dreams in sleep: No Ever felt weak in the knees when startled or emotional: Yes (has fallen to ground a couple times) Bothered by creepy, crawly, restless sensations in legs: No Problems with memory or concentration: No Subjective Initial Vandervoort Sleepiness Scale score: 12 (in 2020) Past Medical History Past Medical History: reports: Fibromyalgia, Anemia, Anxiety, Mood disorder (Bipolar type I), Other (polycystic ovarian syndrome, chronic migraine with aura) Social History 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 Patient is Single and lives in [place]. Have you smoked in the past 12 months: No Alcohol use: No Caffeine use: Yes Caffeine amount and frequency: 1 soda daily Family History Family history of sleep disordered breathing: No Family Hx Sleep Apnea: Mother: Snoring Allergies and Home Medications Drug allergies reviewed: Yes (penicillins, amoxicillin, cephalexin) Home medication list reviewed: Yes Allergy and home medication list: 100 mg Depakote 37.5 mg Venlafaxine 20 mg Fluoxetine 120 mg/ml Engality 10 mg Risatriptan, prn 4 mg Zofran, prn 0.5 mg Xanax, prn Review of Systems Weight gain over past 5 years: 140 Cardiovascular: denies: high blood pressure Gastrointestinal: reports: nausea. denies: heartburn Neurological: reports: headaches. denies: seizure, head trauma Psychiatric: reports: anxiety, mood disorder. denies: depression Ear/Nose/Throat: reports: tonsillectomy (in 2019). denies: injury to nose Endocrine: reports: other (PCOS) Musculoskeletal: reports: joint pain, neck pain, back pain, joint swelling, muscle pain or cramping Physical Exam Blood Pressure: 132/95 Cuff size: Large Heart Rate: 104 O2 Saturation: 98 Height: 5 ft Weight: 321 lb Body Mass Index: 62.6 BMI Classification: Morbidly Obese Neck circumference: 17 (inches) Soft palate: long Hard palate: normal Uvula visualization: 50% Mallampati Class II Tongue: enlarged in size with teeth padilla on lateral edges Tonsils: absent bilaterally Neck: normal w/o lymphadenopathy or thyromegaly Heart: regular rate and rhythm Lungs: clear bilaterally Impression and Plan 1. Suspected Obstructive Sleep Apnea-Hypopnea Syndrome, as suggested by a history of loud and irregular snoring, unrefreshed sleep, and excessive daytime sleepiness. Narrow oropharynx and obesity are common predisposing factors for obstructive sleep apnea-hypopnea syndrome. I recommend proceeding to polysomnography to confirm the diagnosis and to assess severity. If the patient has significant sleep disordered breathing, a manual CPAP titration study will also be performed to find the optimal treatment pressure. I informed the patient of what the sleep studies involve and after some discussion, obtained agreement to proceed. The pathophysiology of obstructive sleep apnea-hypopnea syndrome was discussed with the patient and health risks of cardiovascular and cerebrovascular disease if not treated. Risks of drowsy driving discussed in detail and patient advised to avoid long distance driving and to toe puller at the first sign of drowsiness. Patient agreed to plan. Patient concern about not being able to go to sleep if she has to do in lab sleep test. I offered a one- time dose of Ambien 5 mg to help her sleep the night of the study and she states if she has to do an in lab that she would like to try this. She states she has never taken this before, no known adverse reactions to this medication. * Schedule polysomnography +- manual CPAP titration study and return in 1-2 weeks after the study to discuss result and initiate therapy. * Avoid long distance driving or driving when feeling sleepy. * Avoid alcohol, sedative and muscle relaxant around bedtime. * Attempt to lose weight. * Review instructions provided by trained office staff on how to prepare for the sleep study. * Return for follow-up after sleep study completed. Counseling Topics: Weight loss health impact Visit Type: In Office Time Spent with Patient (minutes): 32 Provider Statement: I spent 100% of the Face to Face Visit with the patient with greater than 50% spent counseling the patient and coordination of care.
[2021-05-16 08:46] VITALS: BP 132/95
== END 2021-05-16 08:01 | disposition home or self-care (01) ==
LOC: SC 08:00
PROVIDERS: ATTEND Nurse Practitioner Family
DX: G47.10 Hypersomnia, unspecified (principal); G47.8 Other sleep disorders; R06.83 Snoring; E66.01 Morbid (severe) obesity due to excess calories; Z68.44 Body mass index [BMI] 60.0-69.9, adult
CPT/HCPCS: 99203; 99212

== ENCOUNTER 2021-06-07 12:10 | Outpatient (CLI) | payer OTHER, MEDICAID | END 2021-06-07 23:59 | disposition home or self-care (01) | LOC: LAB.N 12:10 | PROVIDERS: ATTEND Physician Assistant Medical | DX: R11.2 Nausea with vomiting, unspecified (principal); Z20.822 Contact with and (suspected) exposure to COVID-19 ==

== ENCOUNTER 2021-06-27 08:00 | Outpatient (CLI) | payer OTHER, MEDICAID | END 2021-06-27 23:59 | disposition home or self-care (01) | LOC: LAB.N 08:00 | PROVIDERS: ATTEND Family Medicine | DX: R39.9 Unspecified symptoms and signs involving the genitourinary system (principal) | CPT/HCPCS: 87077; 87086 ==

== ENCOUNTER 2021-08-21 20:37 | Outpatient (CLI) | payer OTHER, MEDICAID | END 2021-08-21 20:38 | disposition home or self-care (01) | LOC: SC 20:37 | PROVIDERS: ATTEND Nurse Practitioner Family | DX: G47.33 Obstructive sleep apnea (adult) (pediatric) (principal) | CPT/HCPCS: 95810 ==

== ENCOUNTER 2021-08-27 08:32 | Outpatient (CLI) | payer OTHER, MEDICAID ==
--- NOTE | 2021-08-27 09:09 | SLEEP CARE CONSULTATION ---
Information from patient questionnaire entered by Stacy Alfred. I have reviewed and concur with the information entered by Stacy Alfred. This document represents the service I personally performed and the decisions made by me, Nusrat Bernal ARNP. History of Present Illness Service Date and Time: 08/27/2021 0832 Initial [place]ucopia Sleepiness Scale score: 12 Current [place]opia Sleepiness Scale score: 15 Additional HPI information: EMILEE MCLEOD returns for follow up and results of the recently performed polysomnography. I explained the pathophysiology behind obstructive sleep apnea. We then spent quite a bit of time discussing different treatment options. For mild obstructive sleep apnea, surgery and oral appliance are alternatives to nasal CPAP therapy but in moderate or severe cases, nasal CPAP is the most effective and reliable treatment. I reviewed the impact of weight changes on sleep apnea and strongly recommended losing weight. After some discussion, the patient opted to go with the nasal CPAP therapy. Nasal autoCPAP set at 4-15 cmH20 will be ordered with rationale explained. A manual titration study will be ordered if unable to find optimal pressure with office adjustments. I explained how CPAP machine works with sample devices [employer] Dreamstation and [employer] [id number] and what to expect when using the machine. Using CPAP every night in order to get used to it was emphasized. Patient advised to put CPAP mask on before getting into bed so as not to fall asleep without CPAP. To assist acclimation to CPAP use, it could also be used for a short time during day while reading or watching TV. The patient was instructed to call the CPAP supplier to discuss any mechanical problem that may occur. If the mask given is uncomfortable or is difficult to keep on through the night even with adjustment, contact the CPAP supplier as many will replace with another mask style if notified before 30 days. If snoring or perceives is not getting enough air or too much air from the machine, notify this office. AASM patient education PAP tips reviewed and given to patient. Patient does not drink alcohol. Patient was cautioned about risks of drowsy driving until sleepiness symptoms resolve. Sleep Study - Results Type of Sleep Study: Polysomnography Prior sleep studies: Yes Year and Where: 08/2021 [facility] Polysomnography/Home Sleep Study results: IMPRESSION: The quality of the study is good. The patient had normal sleep efficiency. The sleep architecture was abnormal for sleep fragmentation and lack of REM and slow wave sleep (N3).. Respiratory monitoring showed extremely severe obstructive sleep apnea-hypopnea (AHI = 113.5) associated with frequent arousals, oxyhemoglobin desaturation and severe hypoxia (stanley oxygen saturation of 48%). Baseline oxygen saturation was also low during REM sleep. The respiratory events occurred independently of sleep stage and body position (supine AHI = 122.7; non-supine = 110.00). Snore was light to loud in intensity. There was no significant periodic leg movement of sleep. Cardiac rhythm was normal sinus rhythm with frequent tachycardia (maximum heart rate = 115).. No abnormal behavior (parasomnia) observed during the night. Allergies and Home Medications Home medication list reviewed: Yes (no changes) Review of Systems Review of systems same as previous: Yes (no changes) Physical Exam Blood Pressure: 133/79 Cuff size: wrist Heart Rate: 122 O2 Saturation: 90 Height: 5 ft Weight: 340 lb Body Mass Index: 66.4 BMI Classification: Morbidly Obese Impression and Plan 1. Obstructive Sleep Apnea-Hypopnea Syndrome, extremely severe, with lowest oxygen saturation of 48%. Obviously this is the cause of the patients symptoms of unrefreshed sleep, and excessive daytime sleepiness. Positive pressure therapy could benefit anxiety and mood disorder (Bipolar). The patient will be started on nasal autoCPAP therapy with pressure set at 5-20 cmH2O with an urgent setup due to severity and severe hypoxemia noted on study. A manual titration study will be ordered and completes if unable to find optimal treatment pressure with office adjustments. Compliance guidelines also reviewed. A copy of compliance guidelines will be given for reference at check out. 2. Hypoxemia, severe. Her stanley oxygen saturation was measured at 48%. Her baseline oxygen saturation was also low during REM sleep at 89%. 3. Tachycardia. Patient had frequent tachycardia with a maximum heart rate of 115 noted during the study. * Nasal auto CPAP therapy, pressure at 5-20 cm H2O. * Titration study * Attempt to lose weight. * Avoid alcohol consumption near bedtime. * Avoid supine sleep until using CPAP. * The patient is again cautioned about driving until sleepiness completely resolves. * Return one month after CPAP obtained. I will assess response to therapy and compliance at that time. Counseling Topics: Weight loss health impact Visit Type: In Office Time Spent with Patient (minutes): 27 Provider Statement: I spent 100% of the Face to Face Visit with the patient with greater than 50% spent counseling the patient and coordination of care.
[2021-08-27 09:10] VITALS: BP 133/79
== END 2021-08-27 08:33 | disposition home or self-care (01) ==
LOC: SC 08:32
PROVIDERS: ATTEND Nurse Practitioner Family
DX: G47.33 Obstructive sleep apnea (adult) (pediatric) (principal); R09.02 Hypoxemia; R00.0 Tachycardia, unspecified; E66.01 Morbid (severe) obesity due to excess calories; Z68.44 Body mass index [BMI] 60.0-69.9, adult
CPT/HCPCS: 99212; 99213

== ENCOUNTER 2021-08-31 18:32 | Emergency (ER) | payer OTHER, MEDICAID ==
[2021-08-31 18:39] VITALS: BP 160/98
--- NOTE | 2021-08-31 18:43 | ED Physician Documentation ---
PD HPI UPPER EXT INJURY - Stated complaint Stated Complaint: RT WRIST PX - Chief complaint Chief Complaint: Trauma Ext - History obtained from History obtained from: Patient - Additonal information Additional information: Patient was getting onto a bike service trainer when she put a lot of pressure onto her right wrist and states felt a crunch. She now has quite a bit of pain in the right wrist. No fall or other trauma. No numbness or tingling. No treatment prior to arrival. Review of Systems Ten Systems: 10 systems reviewed and negative Musculoskeletal: reports: Joint pain (Wrist) PD PAST MEDICAL HISTORY - Past Medical History Cardiovascular: None Respiratory: Pneumonia Neuro: Migraines Endocrine/Autoimmune: None GI: None, Other IRRIGATION FOREMAN: None : None HEENT: None Psych: Depression, Anxiety, Bipolar disorder Musculoskeletal: None Derm: None - Past Surgical History Past Surgical History: Yes HEENT: Tonsil/Adenoidectomy - Present Medications Home Medications: Ambulatory Orders Medication Instructions Recorded Confirmed Fluoxetine HCl [Prozac] 20 mg PO DAILY 06/10/20 02/02/21 Divalproex Sodium [Depakote ER] 1,000 mg PO DAILY 12/26/20 12/26/20 Baclofen 5 mg PO TID PRN #20 tablet 02/02/21 HYDROcodone/ACET 10/325 [Amoret 10 1 each PO TID PRN #10 tablet 02/02/21 mg/325 mg] cloNIDine [Catapres] 0.1 mg PO DAILY 02/02/21 02/02/21 predniSONE [Deltasone] 40 mg PO DAILY 4 Days #8 tablet 02/02/21 - Allergies Allergies/Adverse Reactions: Allergies Allergy/AdvReac Type Severity Reaction Status Date / Time Penicillins Allergy Severe Hives Verified 08/31/21 18:35 amoxicillin Allergy Unknown Verified 08/31/21 18:35 cephalexin [From Keflex] AdvReac Dizziness Verified 08/31/21 18:35 - Social History Does the pt smoke?: No Smoking Status: Never smoker Does the pt drink ETOH?: Yes Does the pt have substance abuse?: Yes - Immunizations Immunizations are current?: Yes - POLST Patient has POLST: No PD ED PE NORMAL - Vitals Vital signs reviewed: Yes - General General: Alert and oriented X 3, No acute distress, Well developed/nourished - HEENT HEENT: Atraumatic - Respiratory Respiratory: No respiratory distress - Derm Derm: Normal color, Warm and dry, No rash - Extremities Extremities: No deformity, No edema, Other (Tenderness around the right wrist, no obvious deformity, no swelling or contusion, no erythema. Normal sensation in the hand, normal range of motion of fingers, no pain with palpation of the hand, forearm aside from the wrist, elbow or shoulder.) - Neuro Neuro: Alert and oriented X 3 Eye Opening: Spontaneous Motor: Obeys Commands Verbal: Oriented GCS Score: 15 Results - Vitals Vitals: Vital Signs - 24 hr 08/31/21 18:35 Temperature 36.5 C Heart Rate 117 H Respiratory 18 Rate Blood Pressure 160/98 H O2 Saturation 98 Oxygen O2 Source Room air PD MEDICAL DECISION MAKING - ED course Complexity details: reviewed results, d/w patient ED course: Presented with right wrist pain after an injury. We obtained an x-ray which was negative for fracture. The physical exam is reassuring expect this is a mild sprain. Placed in a Velcro wrist splint and advised on supportive measures. Departure - Departure Disposition: 01 Home, Self Care Clinical Impression: Injury of wrist Qualifiers: Encounter type: initial encounter Laterality: right Qualified Code(s): S69.91XA - Unspecified injury of right wrist, hand and finger(s), initial encounter Instructions: ED Sprain Wrist Comments: You presented with right wrist pain after an injury. There does not appear to be a fracture on x-ray, but you likely have sustained some degree of sprain. Treatment is supportive, you may utilize wrist splint, cool compress, ibuprofen or Tylenol for pain. Can take 2 to 3 weeks to feel better, if you have persistent pain follow-up with your primary care provider
--- NOTE | 2021-08-31 19:03 | XRAY Report ---
PROCEDURE: Wrist 4 View RT INDICATIONS: Trauma TECHNIQUE: 4 views of the wrist were acquired. COMPARISON: None FINDINGS: Bones: No fractures or dislocations. No suspicious bony lesions. Scaphoid view: Scaphoid is intact. Soft tissues: No suspicious soft tissue calcifications. IMPRESSION: No acute right wrist fracture or dislocation. Reviewed by: Julio César Fields MD on 08/31/2021 7:02 PM PDT Approved by: Julio César Fields MD on 08/31/2021 7:02 PM PDT Station ID: [id number]
== END 2021-08-31 19:33 | disposition home or self-care (01) ==
LOC: ED 18:32
DX: S69.91XA Unspecified injury of right wrist, hand and finger(s), initial encounter (principal); X58.XXXA Exposure to other specified factors, initial encounter
CPT/HCPCS: 99282; 99283

== ENCOUNTER 2021-11-23 07:52 | Outpatient (CLI) | payer MEDICAID ==
--- NOTE | 2021-11-23 09:30 | Ultrasound Report ---
PROCEDURE: Abdomen Limited INDICATIONS: ELEVATED LIVER ENZYMES TECHNIQUE: Real-time focused scanning was performed of the abdomen, with image documentation. COMPARISON: No prior ultrasounds are available for comparison. Correlation is made with prior CT exa minations, 06/28/2020 and 02/19/2019. FINDINGS: The liver demonstrates enlarged size. The liver demonstrates moderately increased echoge nicity, which limits ultrasound sensitivity for detection of masses. Within the mid liver, there is a n avascular hypoechoic lesion seen that measures up to 11 mm. Within the right liver, there is an 8 m m hypoechoic lesion seen. Apparent fatty sparing can be seen adjacent to the gallbladder. No gallstones or sludge can be seen. The gallbladder wall does not appear thickened. There is no spec ific pericholecystic fluid. The sonographic Keating's sign is negative. No biliary ductal dilatation is seen. The common bile duct measures 2 mm. The visualized pancreas is within normal limits. No right kidney hydronephrosis is seen. A prominent column of protein versus a duplex collecting syst em can be seen. The IVC is patent. IMPRESSION: Enlarged, fatty liver, with likely fatty sparing adjacent to the gallbladder. 2 hypoechoic lesions are seen within the liver that measure up to 11 mm. Differential diagnosis inclu nino mildly complex cysts. Attention should be paid to these foci at any future follow-up studies. Reviewed by: Peter Cristobal MD on 11/23/2021 8:29 AM [facility] Approved by: Peter Cristobal MD on 11/23/2021 8:29 AM [facility] Station ID: [id number]
== END 2021-11-23 07:53 | disposition home or self-care (01) ==
LOC: DI 07:52
PROVIDERS: ATTEND Nurse Practitioner Family
DX: K76.0 Fatty (change of) liver, not elsewhere classified (principal); K76.9 Liver disease, unspecified

== ENCOUNTER 2022-01-08 08:07 | Outpatient (CLI) | payer MEDICAID ==
[2022-01-08 12:12] LABS: BASOPHILS # (AUTO) 0.1 10^3/uL (0.0-0.1); BASOPHILS % (AUTO) 0.7 %; EOSINOPHILS # (AUTO) 0.2 10^3/uL (0.0-0.7); EOSINOPHILS % (AUTO) 1.9 %; HCT - HEMATOCRIT 40.8 % (37.0-47.0); HGB - HEMOGLOBIN 12.9 g/dL (12.0-16.0); LYMPHOCYTES # (AUTO) 3.3 10^3/uL (1.5-3.5); LYMPHOCYTES % (AUTO) 32.6 %; MEAN CORPUSCULAR HEMOGLOBIN 26.2 pg (27.0-31.0); MEAN CORPUSCULAR HGB CONC 31.6 g/dL (32.0-36.0); MEAN CORPUSCULAR VOLUME 82.8 fL (81.0-99.0); MEAN PLATELET VOLUME 9.5 fL (7.9-10.8); MONOCYTES # (AUTO) 0.6 10^3/uL (0.0-1.0); MONOCYTES % (AUTO) 5.8 %; NEUTROPHILS % (AUTO) 58.8 %; PLT - PLATELET COUNT 434 10^3/uL (130-450); RED BLOOD COUNT 4.93 10^6/uL (4.20-5.40); RED CELL DISTRIBUTION WIDTH 14.8 % (12.0-15.0); WHITE BLOOD COUNT 10.2 x10^3/uL (4.8-10.8)
[2022-01-08 13:03] LABS: ESTIMATED AVERAGE GLUCOSE 128 mg/dL (70-100); HEMOGLOBIN A1c% 6.1 % (4.27-6.07)
[2022-01-08 13:08] LABS: HCG,QUALITATIVE BLOOD NEGATIVE
[2022-01-08 13:12] LABS: ALBUMIN 4.1 g/dL (3.2-5.5); ALBUMIN/GLOBULIN RATIO 1.1 (1.0-2.2); BILIRUBIN,TOTAL 0.9 mg/dL (0.2-1.0); CALCIUM 9.2 mg/dL (8.5-10.3); CREATININE 0.5 mg/dL (0.4-1.0); POTASSIUM 4.1 mmol/L (3.5-5.0); TOTAL PROTEIN 7.9 g/dL (6.7-8.2)
[2022-01-09 11:51] LABS: HEPATITIS B CORE AB TOTAL NON-REACTIVE (NON-REACTIVE); HEPATITIS C ANTIBODY NON-REACTIVE (NON-REACTIVE)
[2022-01-09 12:25] LABS: HEPATITIS B SURFACE ANTIGEN NON-REACTIVE (NON-REACTIVE)
[2022-01-10 13:56] LABS: CERULOPLASMIN 30 mg/dL (18-53)
== END 2022-01-08 08:08 | disposition home or self-care (01) ==
LOC: LAB.N 08:07
PROVIDERS: ATTEND Family Medicine
DX: R79.89 Other specified abnormal findings of blood chemistry (principal); E28.2 Polycystic ovarian syndrome
CPT/HCPCS: 36415; 80053; 81599; 82103; 82390; 83036; 84703; 85025; 86317; 86704; 86709; 86803; 87340

== ENCOUNTER 2022-06-03 09:04 | Outpatient (CLI) | payer MEDICAID ==
--- NOTE | 2022-06-03 16:55 | Ultrasound Report ---
PROCEDURE: Abdomen Limited INDICATIONS: LIVER CYST TECHNIQUE: Real-time scanning was performed of the abdominal and retroperitoneal organs, with image documentatio n. COMPARISON: None. FINDINGS: Liver: Liver is enlarged measuring 20.8 cm. There is increased echogenicity. There are 2 foci of dec reased echogenicity in the right and left lobes measuring 8 x 7 x 10 mm and 10 x 8 x 11 mm respective ly. Gallbladder: No stones. Wall thickness is normal measuring 2 mm. Biliary ducts: Intrahepatic bile ducts are non-dilated. Extrahepatic bile duct caliber measures 6.2 mm. Normal is 6-7 mm or less in diameter, or 10 mm or less post-cholecystectomy. Pancreas: Visualized portions of the pancreas are sonographically normal. Kidneys: Right kidney measures 12.7 cm long. No hydronephrosis or nephrolithiasis. No solid masses . Iliacs: Proximal common iliac arteries are normal in caliber at less than 2.5 cm. IVC: Intrahepatic inferior vena cava is patent. Miscellaneous: No free abdominal fluid. IMPRESSION: Hepatomegaly steatosis. Hypoechoic foci within the liver most suggestive of simple cysts. Reviewed by: Yanira Hassan MD on 06/03/2022 4:53 PM PDT Approved by: Yanira Hassan MD on 06/03/2022 4:53 PM PDT Station ID: [id number]
== END 2022-06-03 09:05 | disposition home or self-care (01) ==
LOC: DI 09:04
PROVIDERS: ATTEND Nurse Practitioner Family
DX: K76.0 Fatty (change of) liver, not elsewhere classified (principal); K76.89 Other specified diseases of liver

== ENCOUNTER 2022-08-11 17:53 | Emergency (ER) | payer MEDICAID ==
[2022-08-11] MEDS ORDERED: KETOROLAC 60 MG/2 ML VIAL IM STA (19:05)
[2022-08-11] MEDS ORDERED: PROCHLORPERAZINE 10 MG/2 ML VIAL IVP STA (19:34)
[2022-08-11] MEDS ORDERED: CHERRY SYRUP 10 ML UDC PO ONE (19:34)
[2022-08-11] MEDS ORDERED: diphenhydrAMINE INJ 50 MG/ML VIAL IVP STA (19:34)
[2022-08-11] MEDS ORDERED: DEXAMETHASONE 10 MG/ML VIAL PO STA (19:34)
[2022-08-11] MEDS ORDERED: SODIUM CHLORIDE 0.9% 1,000 ML IV STA (19:34)
--- NOTE | 2022-08-11 20:17 | ED Physician Documentation ---
History of Present Illness - Stated complaint Stated Complaint: MIGRAINE/FACIAL DROOP - Chief complaint Chief Complaint: Neuro - Additonal information Additional information: 22 old female presents to the emergency department for evaluation of a migraine. 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 She is followed by a neurologist. She was recently transitioned from Aimovig to now Namenda. Today when she took that Namenda rizatriptan and Zofran she has not had therapeutic relief of her headache. She does report that she had brief facial droop which is not unusual for her. She is scheduled to have an MRI early next week. She is requesting Toradol for relief of the headache. At the time of presentation she her neurological function is normal. No fevers Review of Systems Constitutional: denies: Fever, Chills Nose: reports: Reviewed and negative Throat: reports: Reviewed and negative Cardiac: reports: Reviewed and negative Respiratory: reports: Reviewed and negative Musculoskeletal: reports: Reviewed and negative Neurologic: reports: Focal weakness, Headache PD PAST MEDICAL HISTORY - Past Medical History Past Medical History: Yes Cardiovascular: None Respiratory: Pneumonia Neuro: Migraines Endocrine/Autoimmune: None GI: None, Other QC TECH: None : None HEENT: None Psych: Depression, Anxiety, Bipolar disorder Musculoskeletal: None Derm: None - Past Surgical History Past Surgical History: Yes HEENT: Tonsil/Adenoidectomy - Present Medications Home Medications: Ambulatory Orders Medication Instructions Recorded Confirmed Memantine HCl [Namenda] 10 mg PO DAILY 08/11/22 08/11/22 Ondansetron Odt [Zofran Odt] 4 mg SL BID PRN 08/11/22 08/11/22 Rizatriptan Benzoate [Rizatriptan] 10 mg PO PRN PRN MDD 4 - 8 x a 08/11/22 08/11/22 month - Allergies Allergies/Adverse Reactions: Allergies Allergy/AdvReac Type Severity Reaction Status Date / Time Penicillins Allergy Severe Hives Verified 08/11/22 18:07 amoxicillin Allergy Unknown Verified 08/11/22 18:07 cephalexin [From Keflex] AdvReac Dizziness Verified 08/11/22 18:07 - Social History Does the pt smoke?: No Smoking Status: Never smoker Does the pt drink ETOH?: Yes Does the pt have substance abuse?: Yes - Immunizations Immunizations are current?: Yes - POLST Patient has POLST: No PD ED PE NORMAL - General General: Alert and oriented X 3, No acute distress - HEENT HEENT: PERRL - Neck Neck: Supple, no meningeal sign, No adenopathy - Cardiac Cardiac: RRR, No murmur - Respiratory Respiratory: No respiratory distress, Clear bilaterally - Abdomen Abdomen: Normal bowel sounds, Soft, Non tender - Female Female : Deferred - Derm Derm: Warm and dry - Extremities Extremities: No deformity - Neuro Neuro: Alert and oriented X 3, harbor engineer 2-12 intact, No motor deficit, No sensory deficit, Normal speech Eye Opening: Spontaneous Motor: Obeys Commands Verbal: Oriented GCS Score: 15 Results - Vitals Vitals: Vital Signs - 24 hr 08/11/22 08/11/22 18:04 20:07 Temperature 36.3 C L 36.4 C L Heart Rate 101 H 89 Respiratory 14 15 Rate Blood Pressure 152/114 H 150/94 H O2 Saturation 98 96 Oxygen O2 Source Room air PD MEDICAL DECISION MAKING - ED course Complexity details: considered differential, d/w patient ED course: Well-appearing 22-year-old female who has a history of complex and hemiplegic migraines presents with a migraine that began about 4 hours prior to arrival. She is recently had a transition in her meds from Aimovig to Namenda. She took her usual cocktail medications without relief of symptoms. On presentation she requested Toradol which I administered but is only minimally effective. I then administered Compazine and Benadryl as well as a dose of Decadron which is fully resolved her headache. At this time she is requesting be discharged home. She is followed closely by a neurologist and is scheduled to undergo an MRI early next week. The facial droop is most consistent with her history of hemiplegic migraines and no droop is present at this time Departure - Departure Disposition: 01 Home, Self Care Clinical Impression: Migraine Qualifiers: Migraine type: unspecified Status migrainosus presence: without status migrainosus Intractability: not intractable Qualified Code(s): G43.909 - Migraine, unspecified, not intractable, without status migrainosus Condition: Stable Record reviewed to determine appropriate education?: Yes Comments: Arthur ramey were seen today in the emergency department after you developed a headache that did not resolve with your usual cocktail of medications. You do have a history of hemiplegic migraines and I believe the facial droop that you experienced earlier is consistent with that. Here in the emergency department we initially gave you a dose of Toradol which did not fully resolve the headache we then followed that up with a dose of Compazine Benadryl and 10 mg of Decadron. On reevaluation your headache has resolved. Continue to follow-up with your neurologist as an outpatient. Please take the prescribed medications as you are already advised. Continue to follow-up with the MRI next week as already scheduled. Return to the emergency department for worsening symptoms
[2022-08-11 20:38] VITALS: BP 150/92
== END 2022-08-11 20:37 | disposition home or self-care (01) ==
LOC: ED 17:53
DX: G43.909 Migraine, unspecified, not intractable, without status migrainosus (principal)
CPT/HCPCS: 96372; 96374; 96375; 99283; 99284; A9270; J1200

== ENCOUNTER 2022-09-24 11:48 | Outpatient (CLI) | payer MEDICAID ==
--- NOTE | 2022-09-25 09:43 | Ultrasound Report ---
LIMITED ULTRASOUND OF RIGHT BREAST: 09/24/2022 CLINICAL: Diffuse right breast pain. No prior exams were available for comparison. Ultrasound of the right breast 1-5 o'clock region was performed on the area of interest. Whitehead scale images of the real-time examination were reviewed. IMPRESSION: NEGATIVE There is no sonographic evidence of malignancy. There are no sonographic abnormalities seen in the right breast to correspond with the pain from 1 to 5 o'clock, however, clinical followup is recommended. This exam was interpreted at Station ID: [id number]. Electronically Signed By: Iona Doll M.D. lk/:09/24/2022 12:26:19 Ultrasound BI-RADS: 1 Negative BI-RADS CATEGORY: (1) - 1 Unspecified - other recall n/a LATERALITY: (B)
== END 2022-09-24 11:49 | disposition home or self-care (01) ==
LOC: DI 11:48
PROVIDERS: ATTEND Nurse Practitioner
DX: N64.4 Mastodynia (principal); N64.59 Other signs and symptoms in breast

== ENCOUNTER 2022-12-29 11:17 | Outpatient (CLI) | payer MEDICAID, OTHER ==
[2022-12-29 11:42] LABS: BASOPHILS # (AUTO) 0.1 10^3/uL (0.0-0.1); BASOPHILS % (AUTO) 0.5 %; EOSINOPHILS # (AUTO) 0.2 10^3/uL (0.0-0.7); HGB - HEMOGLOBIN 13.3 g/dL (12.0-16.0); LYMPHOCYTES # (AUTO) 4.1 10^3/uL (1.5-3.5); LYMPHOCYTES % (AUTO) 37.8 %; MEAN CORPUSCULAR HGB CONC 30.9 g/dL (32.0-36.0); MEAN PLATELET VOLUME 9.3 fL (7.9-10.8); MONOCYTES # (AUTO) 0.6 10^3/uL (0.0-1.0); NEUTROPHILS # (AUTO) 5.9 10^3/uL (1.5-6.6); NEUTROPHILS % (AUTO) 54.5 %; PLT - PLATELET COUNT 415 10^3/uL (130-450); RED BLOOD COUNT 5.12 10^6/uL (4.20-5.40); RED CELL DISTRIBUTION WIDTH 13.2 % (12.0-15.0); WHITE BLOOD COUNT 10.9 x10^3/uL (4.8-10.8)
[2022-12-29 12:04] LABS: ALBUMIN 4.1 g/dL (3.2-5.5); ALBUMIN/GLOBULIN RATIO 1.1 (1.0-2.2); ALKALINE PHOSPHATASE 46 IU/L (42-121); ALT ALANINE AMINOTRANSFERASE 33 IU/L (10-60); AST ASPARTATE AMINOTRANSFERASE 23 IU/L (10-42); BILIRUBIN,TOTAL 1.2 mg/dL (0.2-1.0); BUN - BLOOD UREA NITROGEN 10 mg/dL (6-20); CALCIUM 9.2 mg/dL (8.5-10.3); CARBON DIOXIDE - CO2 27 mmol/L (21-32); CHLORIDE 98 mmol/L (101-111); CHOL/HDL RATIO 4.6 (<4.4); CHOLESTEROL 208 mg/dL; CREATININE 0.5 mg/dL (0.4-1.0); GFR - MDRD 152 (>89); GLUCOSE 111 mg/dL (70-100); HDL CHOLESTEROL 45 mg/dL; LDL CHOLESTEROL,CALCULATED 136 mg/dL; SODIUM 134 mmol/L (135-145); TRIGLYCERIDES 135 mg/dL; VLDL CHOLESTEROL 27 mg/dL
[2022-12-29 12:13] LABS: THYROID STIMULATING HORMONE 2.81 uIU/mL (0.34-5.60)
[2022-12-29 12:17] LABS: FREE T4 (FREE THYROXINE) 0.81 ng/dL (0.58-1.64)
[2022-12-29 12:20] LABS: PROLACTIN 15.34 ng/mL
[2022-12-29 12:39] LABS: ESTIMATED AVERAGE GLUCOSE 128 mg/dL (70-100); HEMOGLOBIN A1c% 6.1 % (4.27-6.07)
[2022-12-29 12:41] LABS: FOLLICLE STIMULATING HORMONE 4.19 mIU/mL
[2022-12-29 12:42] LABS: LUTEINIZING HORMONE 3.38 mIU/mL
[2022-12-30 08:10] LABS: PROGESTERONE 0.3 ng/mL (.)
[2022-12-30 16:08] LABS: FREE TESTOSTERONE(DIRECT) 6.1 pg/mL (0.0-4.2); SEX HORM BINDING GLOB SERUM 14.1 nmol/L (24.6-122.0)
== END 2022-12-29 11:18 | disposition home or self-care (01) ==
LOC: LAB 11:17
PROVIDERS: ATTEND Nurse Practitioner
DX: E28.2 Polycystic ovarian syndrome (principal); L68.0 Hirsutism
CPT/HCPCS: 36415; 80053; 80061; 82397; 82627; 82670; 83001; 83002; 83036; 83498; 83721; 84144; 84146; 84270; 84402; 84403; 84439; 84443; 85025

== ENCOUNTER 2023-02-24 08:21 | Outpatient (CLI) | payer OTHER, MEDICAID | END 2023-02-24 08:22 | disposition home or self-care (01) | LOC: MAC.MOP 08:21 | PROVIDERS: ATTEND Nurse Practitioner Family | DX: R00.2 Palpitations (principal); I10 Essential (primary) hypertension; I48.91 Unspecified atrial fibrillation | CPT/HCPCS: 93242 ==

== ENCOUNTER 2023-03-12 10:30 | Outpatient (CLI) | payer OTHER, MEDICAID | END 2023-03-12 10:31 | disposition home or self-care (01) | LOC: MAC.INF 10:30 | PROVIDERS: ATTEND Nurse Practitioner Family | DX: I47.20 Ventricular tachycardia, unspecified (principal); I49.1 Atrial premature depolarization; I49.3 Ventricular premature depolarization; R00.2 Palpitations; I10 Essential (primary) hypertension; I48.91 Unspecified atrial fibrillation | CPT/HCPCS: 93244 ==

== ENCOUNTER 2023-04-22 12:37 | Outpatient (CLI) | payer OTHER, MEDICAID | END 2023-04-22 12:38 | disposition home or self-care (01) | LOC: DI 12:37 | PROVIDERS: ATTEND Nurse Practitioner Family | DX: R00.2 Palpitations (principal); R00.0 Tachycardia, unspecified; I10 Essential (primary) hypertension; I48.91 Unspecified atrial fibrillation; E66.01 Morbid (severe) obesity due to excess calories; Z68.41 Body mass index [BMI] 40.0-44.9, adult | CPT/HCPCS: 93306 ==

== ENCOUNTER 2024-03-28 11:15 | Outpatient (CLI) | payer OTHER ==
[2024-03-28 11:27] LABS: BASOPHILS # (AUTO) 0.1 10^3/uL (0.0-0.1); BASOPHILS % (AUTO) 0.6 %; EOSINOPHILS # (AUTO) 0.2 10^3/uL (0.0-0.7); EOSINOPHILS % (AUTO) 1.9 %; HCT - HEMATOCRIT 41.2 % (37.0-47.0); HGB - HEMOGLOBIN 13.1 g/dL (12.0-16.0); LYMPHOCYTES # (AUTO) 3.9 10^3/uL (1.5-3.5); LYMPHOCYTES % (AUTO) 31.2 %; MEAN CORPUSCULAR HEMOGLOBIN 27.1 pg (27.0-31.0); MEAN CORPUSCULAR HGB CONC 31.8 g/dL (32.0-36.0); MEAN CORPUSCULAR VOLUME 85.1 fL (81.0-99.0); MEAN PLATELET VOLUME 9.2 fL (7.9-10.8); MONOCYTES # (AUTO) 0.6 10^3/uL (0.0-1.0); MONOCYTES % (AUTO) 5.1 %; NEUTROPHILS # (AUTO) 7.6 10^3/uL (1.5-6.6); PLT - PLATELET COUNT 452 10^3/uL (130-450); RED BLOOD COUNT 4.84 10^6/uL (4.20-5.40); RED CELL DISTRIBUTION WIDTH 13.6 % (12.0-15.0); WHITE BLOOD COUNT 12.4 x10^3/uL (4.8-10.8)
[2024-03-28 11:44] LABS: ESTIMATED AVERAGE GLUCOSE 117 mg/dL (70-100); HEMOGLOBIN A1c% 5.7 % (4.27-6.07)
[2024-03-28 11:48] LABS: % IRON SATURATION 8 % (20-50); ALBUMIN 4.4 g/dL (3.2-5.5); ALBUMIN/GLOBULIN RATIO 1.4 (1.0-2.2); ALKALINE PHOSPHATASE 50 IU/L (42-121); ALT ALANINE AMINOTRANSFERASE 33 IU/L (10-60); AST ASPARTATE AMINOTRANSFERASE 23 IU/L (10-42); BILIRUBIN,TOTAL 0.9 mg/dL (0.2-1.0); BUN - BLOOD UREA NITROGEN 8 mg/dL (6-20); CALCIUM 9.9 mg/dL (8.5-10.3); CARBON DIOXIDE - CO2 27 mmol/L (21-32); CHLORIDE 102 mmol/L (101-111); CHOL/HDL RATIO 3.4 (<4.4); CHOLESTEROL 163 mg/dL; CREATININE 0.6 mg/dL (0.6-1.3); GFR - MDRD 121 (>89); GLUCOSE 98 mg/dL (74-104); HDL CHOLESTEROL 48 mg/dL; IRON 45 ug/dL (50-212); LDL CHOLESTEROL,CALCULATED 88 mg/dL; LDL/HDL RATIO 1.8 (<4.4); POTASSIUM 4.2 mmol/L (3.5-4.5); SODIUM 136 mmol/L (135-145); TOTAL IRON BINDING CAPACITY 533 ug/dL (250-450); TOTAL PROTEIN 7.6 g/dL (6.4-8.9); TRANSFERRIN 381 mg/dL (203-362); TRIGLYCERIDES 135 mg/dL (48-352); VLDL CHOLESTEROL 27 mg/dL
[2024-03-28 12:05] LABS: FERRITIN 15.8 ng/mL (11.0-306.8)
== END 2024-03-28 11:16 | disposition home or self-care (01) ==
LOC: LAB 11:15
PROVIDERS: ATTEND Nurse Practitioner Family
DX: I10 Essential (primary) hypertension (principal); E66.01 Morbid (severe) obesity due to excess calories; E88.810 Metabolic syndrome; R00.0 Tachycardia, unspecified; E28.2 Polycystic ovarian syndrome; E55.9 Vitamin D deficiency, unspecified; R53.83 Other fatigue
CPT/HCPCS: 36415; 80053; 80061; 82306; 82607; 82728; 82746; 83036; 83540; 83721; 84443; 84466; 85025

== ENCOUNTER 2024-05-19 11:58 | Outpatient (CLI) | payer OTHER ==
--- NOTE | 2024-05-20 09:05 | Ultrasound Report ---
LIMITED ULTRASOUND OF RIGHT BREAST: 05/19/2024 CLINICAL: Diffuse right breast pain. Comparison is made to exam dated: 09/24/2022 ultrasound - [facility]. Real-time ultrasound of the right breast 11-3 o'clock region was performed. Whitehead scale images of the real-time examination were reviewed. No significant abnormalities were seen sonographically in the right breast. IMPRESSION: NEGATIVE There is no sonographic evidence of malignancy. There are no abnormalities seen in the right breast to correspond with the areas of clinical concern and pain at 1, 2, 3, 11, and 12 o'clock, however, recommend clinical follow up for persistent or wors ening symptoms, or development of any clinically suspicious findings. Recommend initiating routine screening mammograms at age 40. Findings and recommendations were conveyed to the patient during today's evaluation. This exam was interpreted at Station ID: [id number]. Electronically Signed By: Sly Cummings M.D. aty/:05/19/2024 13:08:16 Ultrasound BI-RADS: 1 Negative BI-RADS CATEGORY: (1) - 1 RECOMMENDATION: (ADDMAM) - Recommend additional mammographic views. recall n/a LATERALITY: (B)
== END 2024-05-19 11:59 | disposition home or self-care (01) ==
LOC: DI 11:58
PROVIDERS: ATTEND Nurse Practitioner Family
DX: N64.4 Mastodynia (principal)